=== PATIENT | female | born 1955 | race Caucasian/White ===

== ENCOUNTER 2017-04-10 10:08 | Emergency (ER) | payer BC, OTHER ==
[~2017-04-10] VITALS: Ht 165.1 cm; Wt 56.7 kg
[~2017-04-10 10:08] MED LIST: MGCT300B PO; TRM50T PO
--- OUTSIDE RECORDS SUMMARY | 2017-04-10 10:15 | XMS REPORT | Continuity of Care Document ---
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 DEPRESSED 12/29/2007 NATHANIEL MCGUIRE APRNNDA S 300.00 AN ANXIETY UNSPEC 12/29/2007 NATHANIEL MCGUIRE APRNNDA S 309.0 AD ADJ D/O W DEPRESSED 12/29/2007 NATHANIEL MCGUIRE APRNNDA S 300.00 AN ANXIETY UNSPEC 12/29/2007 MAYNOR GRIMALDO JUDY S 309.0 AD ADJ D/O W DEPRESSED 09/14/2013 NADIYA MCGUIRE APRNA S 386.11 VERTIGO- BENIGN PAROXYSMAL POSITIONAL 09/14/2013 NATHANIEL MCGUIRE APRNNDA S 627.9 MENOPAUSAL AND POSTMENOPAUSAL DISORDER UNSPECIFIED 09/14/2013 NADIYA MCGUIRE APRNA S 780.79 fatigue 09/14/2013 NATHANIEL MCGUIRE APRNNDA S 783.1 WEIGHT GAIN ABNORMAL 09/14/2013 NATHANIEL MCGUIRE APRNNDA S 799.81 libido 09/14/2013 NADIYA MCGUIRE APRNA S V17.49 FAM HX CAD (DISEASE) 09/14/2013 NADIYA MCGUIRE APRNA S V70.0 EXAM - ROUTINE H&P 09/14/2013 NATHANIEL MCGUIRE APRNNDA S 386.11 VERTIGO- BENIGN PAROXYSMAL POSITIONAL 09/14/2013 NATHANIEL MCGUIRE APRNNDA S 627.9 MENOPAUSAL AND POSTMENOPAUSAL DISORDER UNSPECIFIED 09/14/2013 MAYNOR SENIOR SOFTWARE ARCHITECT, JUDY S 780.79 fatigue 09/14/2013 MAYNOR SENIOR SOFTWARE ARCHITECT, JUDY S 783.1 WEIGHT GAIN ABNORMAL 09/14/2013 MAYNOR SENIOR SOFTWARE ARCHITECT, JUDY S 799.81 libido 09/14/2013 MAYNOR SENIOR SOFTWARE ARCHITECT, JUDY S V17.49 FAM HX CAD (DISEASE) 09/14/2013 MAYNOR SENIOR SOFTWARE ARCHITECT, JUDY S V70.0 EXAM - ROUTINE H&P 09/14/2013 MAYNOR SENIOR SOFTWARE ARCHITECTNATHANIEL KayeNDA S 386.11 VERTIGO- BENIGN PAROXYSMAL POSITIONAL 09/14/2013 MAYNOR SENIOR SOFTWARE ARCHITECT, JUDY S 627.9 MENOPAUSAL AND POSTMENOPAUSAL DISORDER UNSPECIFIED 09/14/2013 MAYNOR SENIOR SOFTWARE ARCHITECT, JUDY S 780.79 fatigue 09/14/2013 MAYNOR SENIOR SOFTWARE ARCHITECT, JUDY S 783.1 WEIGHT GAIN ABNORMAL 09/14/2013 MAYNOR SENIOR SOFTWARE ARCHITECT, JUDY S 799.81 libido 09/14/2013 MAYNOR SENIOR SOFTWARE ARCHITECT, JUDY S V17.49 FAM HX CAD (DISEASE) 09/14/2013 MAYNOR SENIOR SOFTWARE ARCHITECT, JUDY S V70.0 EXAM - ROUTINE H&P 09/17/2013 MAYNOR GRIMALDO JUDY S 244.9 HYPOTHYROIDISM 09/17/2013 MAYNOR GRIMALDO, JUDY S 244.9 HYPOTHYROIDISM 09/17/2013 MAYNOR GRIMALDO JUDY S 244.9 HYPOTHYROIDISM 09/18/2013 NATHANIEL MCGUIRE APRNNDA S 272.4 HYPERLIPIDEMIA 09/18/2013 MAYNOR GRIMALDO JUDY S 272.4 HYPERLIPIDEMIA Procedures Code Description [place] [address] UA W/ CULTURE IF INDICATED 09/14/2013 52837 ROUTINE VENIPUNCTURE 09/14/2013 77275 CBC 09/15/2013 [id number] GFR CALC (RESULT ONLY) 09/15/2013 31372 CMP 09/15/2013 50476 TSH 09/15/2013 28870 CULTURE URINE 10/2013 11968 ROUTINE VENIPUNCTURE 09/18/2013 93242 LIPID PANEL 09/18 17512 ROUTINE VENIPUNCTURE 11/16/2013 13929 TSH 11/16/2013 Results Encounters ACCT No. Visit Date/Time Discharge Status Pt. Type Provider Facility Loc./Unit Complaint [id number] 11/16/2013 14:58:00 11/16/2013 23: 59:59 [facility] Outpatient JUDY MCGUIRE APRN [id number] 09/18/2013 09:51:00 09/18/2013 23: 59:59 [facility] Outpatient JUDY MCGUIRE APRN [id number] 09/14/2013 17:40:00 09/14/2013 23: 59:59 [facility] Outpatient JUDY MCGUIRE APRN
--- NOTE | 2017-04-10 10:32 | ED EENT ---
History of Present Illness General Chief Complaint: Dental Problems/Pain Stated Complaint: R SIDE EAR PAIN, SWOLLEN GLANDS Source: patient Exam Limitations: no limitations History of Present Illness Time seen by provider: 10:27 Initial Comments This 62-year-old female presents with right mandibular toothache that has been progressive for the last 24 hours. The patient intends to see the dentist at [facility]. She denies difficulty swallowing, she's had no remarkable soft tissue swelling, the patient's pain radiates into the ear. She has noted some swollen cervical nodes in the region. Next The patient denies headache, stiff neck, photophobia, cough, nausea vomiting, or abdominal pain. Allergies and Home Medications Allergies Coded Allergies: Morphine (Unverified Allergy, Mild, burning sensation, 04/09/10) Naproxen (Unverified Allergy, Mild, 02/20/09) Home Medications Magnesium Citrate 300 Ml Btl, 0 PO UD, #1 Ref 0 USE PER PACKAGE INSTRUCTIONS. Prescribed by: ANDRES BRISENO on 02/20/09 1407 Tramadol Hcl 50 Mg Tab, 50-100 MG PO Q6H PRN, #20 Ref 0 Prescribed by: ANDRES BRISENO on 04/15/09 1709 Review of Systems Constitutional: No chills, No fever Eyes: Denies Blurred Vision Ears: Denies Dizziness, Pain (in the right ear which is radiating from her toothache in the right mandible) Nose: no symptoms reported Mouth: pain (in the right mandibular second molar.) Throat: denies pain, denies swelling Respiratory: No cough Cardiovascular: No chest pain Gastrointestinal: No abdominal pain, No nausea, No vomiting Musculoskeletal: no symptoms reported Skin: no symptoms reported, see HPI, No rash Neurological: No Symptoms Reported Hematologic/Lymphatic: No Symptoms Reported Immunological/Allergic: no symptoms reported Past Wammlqh-Goiyld-Xfkmlj Hx Patient Social History Recent Foreign Travel: No Contact w/Someone Who Travel: No Reviewed Nursing Assessment Reviewed/Agree w Nursing PMH: Yes Physical Exam General Appearance: WD/WN, no apparent distress Eyes: bilateral eye normal inspection Ears: bilateral ear auricle normal Nose: normal inspection Mouth/Throat: normal mouth inspection, other (the area of the patient's pain is located over the second molar of the right mandible. There is no significant soft tissue swelling.) Neck: non-tender Cardiovascular: normal peripheral pulses, regular rate, rhythm Respiratory: chest non-tender, lungs clear Gastrointestinal: normal bowel sounds, non tender Neurologic/Psychiatric: no motor/sensory deficits, alert, normal mood/affect Skin: normal color Departure Impression Impression: Primary Impression: Dental caries Disposition: HOME, SELF-CARE Condition: Unchanged Departure-Patient Inst. Decision time for Depature: 10:31 Referrals: [facility] MD (PCP/Family) Primary Care Physician Patient Instructions: Dental Pain (DC) Add. Discharge Instructions: Pen-Vee K as prescribed. Ibuprofen or Tylenol for pain. Also follow-up with dentistry at [facility]. Return if any problems. All discharge instructions reviewed with patient and/or family. Voiced understanding. OSWALDO VALENZUELA MD Apr 10, 2017 10:32
[2017-04-10 10:36] VITALS: BP 134/72
== END 2017-04-10 10:36 | disposition home or self-care (01) ==
LOC: EDUNIT# 10:08 → ER 10:10
DX: K02.9 Dental caries, unspecified (principal)
CPT/HCPCS: 99282

== ENCOUNTER 2018-04-04 10:16 | Emergency (ER) | payer BC ==
[~2018-04-04] VITALS: Ht 165.1 cm; Wt 50.8 kg
--- OUTSIDE RECORDS SUMMARY | 2018-04-04 11:25 | XMS REPORT ---
Author Author NORA FARMER [facility] Address [address] [place] [address] Care Team Providers Care Patient Transport Officer Name Role Phone NORA FARMER Unavailable PROBLEMS Type Condition ICD9-CM Code BAS48-WN Code Onset Dates Condition Status SNOMED Code Problem Routine general medical examination at health care facility V70.0 Active 926955788 Problem Abnormal weight gain 783.1 Active 342815145 Problem Decreased libido 799.81 Active 0136661 Problem Family history of other cardiovascular diseases V17.49 Active 276620365 Problem Dyslipidemia E78.5 Active 014921767 Problem Unspecified hypothyroidism 244.9 Active 93683768 Problem Unspecified menopausal and postmenopausal disorder 627.9 Active 579417930 Problem Other malaise and fatigue 780.79 Active 722133429 Problem Other and unspecified hyperlipidemia 272.4 Active 33409968 Problem Benign paroxysmal positional vertigo 386.11 Active 795934565 ALLERGIES Substance Reaction Event Type Date Status Sulfacet-R Unknown Drug Allergy Mar, Active Keflex Unknown Drug Allergy Mar, Active Morphine Unknown Drug Allergy Mar, Active ENCOUNTERS Encounter Location Date Diagnosis [facility] [address] [address] Aug, Dyslipidemia E78.5 [facility] [address] [id number] [id number] Aug, Fatigue, unspecified type R53.83 [facility] [address] [facility] [id number] [id number] Aug, [facility] [address] [id number] [id number] Mar, Dental examination Z01.20 and Dental caries on smooth surface penetrating into pulp K02.63 [facility] [id number] [place] [address] May, Dental caries K02.9 [facility] [address] [id number] [place] [address] May, Dental examination Z01.20 [facility] [address] [id number] [place] [address] 14 Sep, 2014 [facility] [address] [id number], [place] [address] 13 Sep, 2014 [facility] [address] [id number] [place] [address] Apr, [facility] [address] [id number] [place] [address] Apr, [facility] [address] [id number] [place] [address] Nov, [facility] [address] [facility] [id number] [place] [address] Nov, [facility] [address] [id number][place] [address] Nov, [facility] [address] [id number] [place] [address] Nov, [facility] [address] [facility] [id number], [place] [address] Nov, [facility] [address] [id number], [place] [address] Nov, [facility] [address] [id number], [place] [address] Nov, [facility] [address] [id number], [place] [address] Nov, [facility] [address] [id number][place] [address] October, [facility] [address] [id number][place] [address] October, [facility] [address] [id number] [place] [address] Sep, [facility] [address] [id number] [place] [address] Sep, [facility] [address] [id number] [place] [address] Sep, [facility] [address] [id number] [place] [address] Sep, [facility] [address] [id number] [place] [address] Sep, [facility] [address] [id number] [place] [address] Sep, [facility] [address] [id number], [place] [address] Sep, [facility] [address] [id number], [place] [address] Sep, [facility] [address] [id number], [place] [address] Sep, [facility] [address] [id number], [place] [address] Sep, [facility] [address] [facility] [id number], [place] [address] Sep, [facility] [address] [id number], [place] [address] Sep, [facility] [address] [id number], [place] [address] Sep, [facility] [address] [id number], [place] [address] Sep, [facility] [address] [facility] [id number][place] [address] Sep, IMMUNIZATIONS No Known Immunizations SOCIAL HISTORY Never Assessed REASON FOR VISIT Dental pain PLAN OF CARE Activity Details Follow Up RADHA/Prophy Reason: VITAL SIGNS Height 65 in 2017-04-13 Heart Rate 78 bpm 2017-04-13 Blood pressure systolic 115 mmHg 2017-04-13 Blood pressure diastolic 69 mmHg 2017-04-13 MEDICATIONS Unknown Medications RESULTS No Results PROCEDURES Procedure Date Ordered Result Body Site LTD ORAL EVALUATION - PROBLEM FOCUS Apr 13, 2017 INTRAORL-PERIAPICAL 1 FILM 35552 Apr 13, 2017 EXTRAC ERUPTED TOOTH/EXPOSED ROOT Apr 13, 2017 INSTRUCTIONS MEDICATIONS ADMINISTERED No Known Medications MEDICAL (GENERAL) HISTORY Type Description Date Medical History thyroid disorder Medical History irritable bowel syndrome Surgical History arthroscopic knee surgery left 1995 Surgical History hysterectomy, abdominal 1992 Surgical History rhinoplasty 1995 Surgical History toe surgery along time ago 1974 Hospitalization History Surgery(s)/Childbirth(s) only
--- OUTSIDE RECORDS SUMMARY | 2018-04-04 11:25 | XMS REPORT | Continuity of Care Document ---
Author Author [facility] Address Unknown Phone Unavailable Allergies Active Description Code Type Severity Reaction Onset Reported/Identified Relationship to Patient Clinical Status Yes naproxen [id number] Drug Allergy Mild N/A 02/20/2009 Yes morphine [id number] Drug Allergy Mild burning sensati 04/09/2010 Yes Keflex Drug Allergy N/A N/A 09/14/2013 Yes morphine Drug Allergy N/A N/A 09/14/2013 Medications There is no data. Problems Date Dx Coded Attending Type Code Diagnosis Diagnosed By 12/29/2007 JUDY MCGUIRE APRN S 300.00 AN ANXIETY UNSPEC 12/29/2007 JUDY MCGUIRE APRN S 309.0 AD ADJ D/O W DEPRESSED 12/29/2007 JUDY MCGUIRE APRN S 300.00 AN ANXIETY UNSPEC 12/29/2007 NADIYA MCGUIRE APRNA S 309.0 AD ADJ D/O W DEPRESSED 12/29/2007 NADIYA MCGUIRE APRNA S 300.00 AN ANXIETY UNSPEC 12/29/2007 JUDY MCGUIRE APRN S 309.0 AD ADJ D/O W DEPRESSED 09/14/2013 JUDY MCGUIRE APRN S 386.11 VERTIGO- BENIGN PAROXYSMAL POSITIONAL 09/14/2013 JUDY MCGUIRE APRN S 627.9 MENOPAUSAL AND POSTMENOPAUSAL DISORDER UNSPECIFIED 09/14/2013 JUDY MCGUIRE APRN S 780.79 fatigue 09/14/2013 JUDY MCGUIRE APRN S 783.1 WEIGHT GAIN ABNORMAL 09/14/2013 JUDY MCGUIRE APRN S 799.81 libido 09/14/2013 JUDY MCGUIRE APRN S V17.49 FAM HX CAD (DISEASE) 09/14/2013 JUDY MCGUIRE APRN S V70.0 EXAM - ROUTINE H&P 09/14/2013 MAYNOR FAMILY PARTNER, JUDY S 386.11 VERTIGO- BENIGN PAROXYSMAL POSITIONAL 09/14/2013 MAYNOR FAMILY PARTNER, JUDY S 627.9 MENOPAUSAL AND POSTMENOPAUSAL DISORDER UNSPECIFIED 09/14/2013 MAYNOR FAMILY PARTNER, JUDY S 780.79 fatigue 09/14/2013 MAYNOR FAMILY PARTNER, JUDY S 783.1 WEIGHT GAIN ABNORMAL 09/14/2013 MAYNOR FAMILY PARTNER, JUDY S 799.81 libido 09/14/2013 MAYNOR LARIOSN, JUDY S V17.49 FAM HX CAD (DISEASE) 09/14/2013 MAYNOR FAMILY PARTNER, JUDY S V70.0 EXAM - ROUTINE H&P 09/14/2013 MAYNOR LARIOSN, JUDY S 386.11 VERTIGO- BENIGN PAROXYSMAL POSITIONAL 09/14/2013 MAYNOR FAMILY PARTNER, JUDY S 627.9 MENOPAUSAL AND POSTMENOPAUSAL DISORDER UNSPECIFIED 09/14/2013 MAYNOR FAMILY PARTNER, JUDY S 780.79 fatigue 09/14/2013 MAYNOR LARIOSN, JUDY S 783.1 WEIGHT GAIN ABNORMAL 09/14/2013 MAYNOR LARIOSN, JUDY S 799.81 libido 09/14/2013 MAYNOR LARIOSN, JUDY S V17.49 FAM HX CAD (DISEASE) 09/14/2013 MAYNOR FAMILY PARTNER, JUDY S V70.0 EXAM - ROUTINE H&P 09/17/2013 MAYNOR FAMILY PARTNER, JUDY S 244.9 HYPOTHYROIDISM 09/17/2013 MAYNOR FAMILY PARTNER, JUDY S 244.9 HYPOTHYROIDISM 09/17/2013 MAYNOR FAMILY PARTNER, JUDY S 244.9 HYPOTHYROIDISM 09/18/2013 MAYNOR FAMILY PARTNER, JUDY S 272.4 HYPERLIPIDEMIA 09/18/2013 MAYNOR FAMILY PARTNER, JUDY S 272.4 HYPERLIPIDEMIA 04/10/2017 OSWALDO VALENZUELA MD Ot K02.9 DENTAL CARIES, UNSPECIFIED 04/10/2017 OSWALDO VALENZUELA MD Ot K08.89 OTHER SPECIFIED DISORDERS OF TEETH AND S Procedures Code Description [place] [address] UA W/ CULTURE IF INDICATED 09/14/2013 65900 ROUTINE VENIPUNCTURE 09/14/2013 89097 CBC 09/15/2013 8632920 GFR CALC (RESULT ONLY) 09/15/2013 12653 CMP 09/15/2013 28971 [facility] 09/15/2013 86282 CULTURE URINE 09/16/2013 48511 ROUTINE VENIPUNCTURE 09/18/2013 30024 LIPID PANEL 09/18/2013 09245 ROUTINE VENIPUNCTURE 11/16/2013 21410 [facility] 11/16/2013 Results Test Result Range LIPID PANEL - 08/19/17 11:06 CHOLESTEROL, TOTAL 229 mg/dL <200 HDL CHOLESTEROL 76 mg/dL >50 TRIGLYCERIDES 105 mg/dL <150 LDL-CHOLESTEROL 132 mg/dL (calc) NRG CHOL/HDLC RATIO 3.0 (calc) <5.0 NON HDL CHOLESTEROL 153 mg/dL (calc) <130 CMP - 08/19/17 11:06 GLUCOSE 87 mg/dL 65-99 UREA NITROGEN (BUN) 18 mg/dL 7-25 CREATININE 0.69 mg/dL 0.50-0.99 eGFR NON-AFR. ROMANIAN 93 mL/min/1.73m2 > OR=60 eGFR 108 mL/min/1.73m2 > OR=60 BUN/CREATININE RATIO NOT APPLICABLE (calc) 6-22 SODIUM 142 mmol/L 135-146 POTASSIUM 4.1 mmol/L 3.5-5.3 CHLORIDE 105 mmol/L 98-110 CARBON DIOXIDE 30 mmol/L 20-31 CALCIUM 10.1 mg/dL 8.6-10.4 PROTEIN, TOTAL 6.8 g/dL 6.1-8.1 ALBUMIN 4.8 g/dL 3.6-5.1 GLOBULIN 2.0 g/dL (calc) 1.9-3.7 ALBUMIN/GLOBULIN RATIO 2.4 (calc) 1.0-2.5 BILIRUBIN, TOTAL 0.5 mg/dL 0.2-1.2 ALKALINE PHOSPHATASE 51 U/L 33-130 AST 21 U/L 10-35 ALT 14 U/L 6-29 CBC - 08/19/17 11:06 WHITE BLOOD CELL COUNT 7.0 Thousand/uL 3.8-10.8 RED BLOOD CELL COUNT 4.30 Million/uL 3.80-5.10 HEMOGLOBIN 13.0 g/dL 11.7-15.5 HEMATOCRIT 38.8 % 35.0-45.0 MCV 90.2 fL 80.0-100.0 MCH 30.2 pg 27.0-33.0 MCHC 33.5 g/dL 32.0-36.0 RDW 11.8 % 11.0-15.0 PLATELET COUNT 283 Thousand/uL 140-400 MPV 10.5 fL 7.5-12.5 ABSOLUTE NEUTROPHILS 3507 cells/uL 4955-8934 ABSOLUTE LYMPHOCYTES 2695 cells/uL 850-3900 ABSOLUTE MONOCYTES 637 cells/uL 200-950 ABSOLUTE EOSINOPHILS 119 cells/uL 15-500 ABSOLUTE BASOPHILS 42 cells/uL 0-200 NEUTROPHILS 50.1 % NRG LYMPHOCYTES 38.5 % NRG MONOCYTES 9.1 % NRG EOSINOPHILS 1.7 % NRG BASOPHILS 0.6 % NRG TSH - 08/19/17 11:06 TSH 2.57 mIU/L 0.40-4.50 Encounters ACCT No. Visit Date/Time Discharge Status Pt. Type Provider Facility Loc./Unit Complaint [id number] 11/16/2013 14:58:00 11/16/2013 23:59:59 CLS Outpatient JUDY MCGUIRE APRN [id number] 09/18/2013 09:51:00 09/18/2013 23:59:59 CLS Outpatient JUDY MCGUIRE APRN [id number] 09/14/2013 17:40:00 09/14/2013 23:59:59 CLS Outpatient JUDY MCGUIRE APRN [id number] 08/19/2017 10:00:00 08/19/2017 23:59:59 CLS Outpatient BHARTI CASTRO [facility] [id number] 08/19/2017 10:00:00 Document Registration [id number] 04/10/2017 10:10:00 04/10/2017 10:36:00 DIS Emergency NICOLAS FLOYD, OSWALDO Cedillo [facility] ER R SIDE EAR PAIN, SWOLLEN GLANDS
--- OUTSIDE RECORDS SUMMARY | 2018-04-04 11:25 | XMS REPORT ---
Author Author AT GENAO Organization [facility] Address [address] [place] [address] Care Team Providers Care Tailor Garment Fitter Name Role Phone NARDAJINAASHISHT Unavailable PROBLEMS Type Condition ICD9-CM Code TUL60-RR Code Onset Dates Condition Status SNOMED Code Problem Routine general medical examination at health care facility V70.0 Active 734019949 Problem Abnormal weight gain 783.1 Active 525618587 Problem Decreased libido 799.81 Active 0077333 Problem Family history of other cardiovascular diseases V17.49 Active 938210017 Problem Dyslipidemia E78.5 Active 019506704 Problem Unspecified hypothyroidism 244.9 Active 01294755 Problem Unspecified menopausal and postmenopausal disorder 627.9 Active 004771991 Problem Other malaise and fatigue 780.79 Active 366541087 Problem Other and unspecified hyperlipidemia 272.4 Active 67948733 Problem Benign paroxysmal positional vertigo 386.11 Active 951081699 ALLERGIES No Information ENCOUNTERS Encounter Location Date Diagnosis [facility] [id number] [place] [address] Aug, Dyslipidemia E78.5 [facility] [id number] [id number] Aug, Fatigue, unspecified type R53.83 [facility] [id number] [id number] Aug, [facility] [address] [id number] [id number] Mar, Dental examination Z01.20 and Dental caries on smooth surface penetrating into pulp K02.63 [facility] [address] [place] [address] May, Dental caries K02.9 [facility] [address] [place] [address] 05 May, 2016 Dental examination Z01.20 [facility] [place] [facility] [address] [id number] [place] [address] 14 Sep, 2014 [facility] [place] [facility] [address] [id number] [place] [address] 13 Sep, 2014 [facility] [address] [id number] [place] [address] 10 Apr, 2014 [facility] [place] [facility] [address] [id number] [place] [address] Apr, [facility] [place] [facility] [address] [id number] [place] [address] Nov, [facility] [place] [facility] [address] [id number] [place] [address] 17 Nov, 2013 [facility] [place] [facility] [address] [id number] [place] [address] Nov, [facility] [place] [facility] [address] [id number] [place] [address] Nov, [facility] [place] [facility] [address] [id number] [place] [address] Nov, [facility] [place] [facility] [address] [facility] [id number] [place] [address] Nov, [facility] [place] [facility] [address] [id number] [place] [address] Nov, [facility] [place] [facility] [address] [id number] [place] [address] Nov, [facility] [place] [facility] [address] [id number] [place] [address] October, [facility] [place] [facility] [address] [id number] [place] [address] October, [facility] [place] [facility] [address] [id number] [place] [address] Sep, [facility] [address] [facility] [id number], [place] [address] Sep, [facility] [address] [facility] [id number], [place] [address] Sep, [facility] [address] [facility] [id number], [place] [address] Sep, [facility] [address] [facility] [id number], [place] [address] Sep, [facility] [address] [facility] [id number], [place] [address] Sep, [facility] [address] [facility] [id number], [place] [address] Sep, [facility] [address]65[address], [place] [address] Sep, [facility] [address]00565100[place], [place] [address] Sep, [facility] [address] [id number], [place] [address] Sep, [facility] [address] [id number], [place] [address] Sep, [facility] [address] [id number], [place] [address] Sep, [facility] [address] [id number] [address] Sep, [facility] [address] [id number], [place] [address] Sep, [facility] [address] [id number], [place] [address] Sep, IMMUNIZATIONS No Known Immunizations SOCIAL HISTORY Never Assessed REASON FOR VISIT PLAN OF CARE VITAL SIGNS MEDICATIONS Medication Instructions Dosage Frequency Start Date End Date Duration Status Atorvastatin Calcium 40 mg Orally Once a day 1 tablet 24h 09 Mar, 2018 30 day(s) Active RESULTS No Results PROCEDURES No Known procedures INSTRUCTIONS MEDICATIONS ADMINISTERED No Known Medications MEDICAL (GENERAL) HISTORY Type Description Date Medical History thyroid disorder Medical History irritable bowel syndrome Surgical History arthroscopic knee surgery left 1995 Surgical History hysterectomy, abdominal 1992 Surgical History rhinoplasty 1995 Surgical History toe surgery along time ago 1974 Hospitalization History Surgery(s)/Childbirth(s) only
--- OUTSIDE RECORDS SUMMARY | 2018-04-04 11:25 | XMS REPORT ---
Author Author TA GENAO Organization [facility] Address [address] [place] [address] Care Team Providers Care Alignment Mechanic Name Role Phone NARDAIVANIATA Fermin Unavailable PROBLEMS Type Condition ICD9-CM Code SAH48-QS Code Onset Dates Condition Status SNOMED Code Problem Routine general medical examination at health care facility V70.0 Active 880631044 Problem Abnormal weight gain 783.1 Active 017784216 Problem Decreased libido 799.81 Active 0822858 Problem Family history of other cardiovascular diseases V17.49 Active 016617191 Problem Dyslipidemia E78.5 Active 174459264 Problem Unspecified hypothyroidism 244.9 Active 49638633 Problem Unspecified menopausal and postmenopausal disorder 627.9 Active 475876511 Problem Other malaise and fatigue 780.79 Active 150098380 Problem Other and unspecified hyperlipidemia 272.4 Active 57003614 Problem Benign paroxysmal positional vertigo 386.11 Active 185936716 ALLERGIES Substance Reaction Event Type Date Status Sulfacet-R hives Drug Allergy Aug, Active Keflex hives Drug Allergy Aug, Active ENCOUNTERS Encounter Location Date Diagnosis [facility] [address] [facility] [id number], [place] [address] Aug, Dyslipidemia E78.5 [facility] [address] [facility] [id number] [id number] Aug, Fatigue, unspecified type R53.83 [facility] [address] [facility] [id number] [id number] Aug, [id number] [id number] [id number] Mar, Dental examination Z01.20 and Dental caries on smooth surface penetrating into pulp K02.63 [facility] [address] [place] [address] May, Dental caries K02.9 [facility] [address] [id number] [place] [address] May, Dental examination Z01.20 [facility] [address] [id number] [place] [address] 14 Sep, 2014 [facility] [address] [id number], [place] [address] Sep, [facility] [address] [id number] [place] [address] Apr, [facility] [address] [id number] [place] [address] Apr, [facility] [address] [id number] [place] [address] Nov, [facility] [address] [facility] [id number] [place] [address] Nov, [facility] [address] [id number], [place] [address] Nov, [facility] [address] [id number] [place] [address] Nov, [facility] [address] [facility] [id number], [place] [address] Nov, [facility] [address] [id number], [place] [address] Nov, [facility] [address] [id number], [place] [address] Nov, [facility] [address] [id number], [place] [address] Nov, [facility] [place] [facility] [address] [facility] [id number], [place] [address] October, [facility] [address] [id number], [place] [address] October, [facility] [address] [id number] [place] [address] Sep, [facility] [address] [id number] [place] [address] Sep, [facility] [address] [id number] [place] [address] Sep, [facility] [address] [id number] [place] [address] Sep, [facility] [address] [id number] [place] [address] Sep, [facility] [address] [id number] [place] [address] Sep, [facility] [address] [facility] [id number] [place] [address] Sep, [facility] [address] [facility] [id number], [place] [address] Sep, [facility] [address] [facility] [id number] [place] [address] Sep, [facility] [address] [facility] [id number] [place] [address] Sep, [facility] [address] [facility] [id number] [place] [address] Sep, [facility] [address] [facility] [id number], [place] [address] Sep, [facility] [address] [facility] [id number][place] [address] Sep, [facility] [address] [facility] [id number], [place] [address] Sep, [facility] [address] [facility] [id number], [place] [address] Sep, IMMUNIZATIONS No Known Immunizations SOCIAL HISTORY Never Assessed REASON FOR VISIT PMH obtained. Derek LINTON PLAN OF CARE VITAL SIGNS MEDICATIONS Medication Instructions Dosage Frequency Start Date End Date Duration Status Progesterone 0.5ml at PM 15 Sep, 2013 Not-Taking RESULTS No Results PROCEDURES No Known procedures INSTRUCTIONS MEDICATIONS ADMINISTERED No Known Medications MEDICAL (GENERAL) HISTORY Type Description Date Medical History thyroid disorder Medical History irritable bowel syndrome Surgical History arthroscopic knee surgery left 1995 Surgical History hysterectomy, abdominal 1992 Surgical History rhinoplasty 1995 Surgical History toe surgery along time ago 1973 Hospitalization History Surgery(s)/Childbirth(s) only
--- OUTSIDE RECORDS SUMMARY | 2018-04-04 11:25 | XMS REPORT ---
Author Author TA GENAO Organization [facility] Address [address] [place] [address] Care Team Providers Care Straw Hat Brim Cutter Operator Name Role Phone NARDAIVANIATA Fermin Unavailable PROBLEMS Type Condition ICD9-CM Code OEV14-BJ Code Onset Dates Condition Status SNOMED Code Problem Routine general medical examination at health care facility V70.0 Active 893723753 Problem Abnormal weight gain 783.1 Active 036452745 Problem Decreased libido 799.81 Active 0876625 Problem Family history of other cardiovascular diseases V17.49 Active 307264827 Problem Dyslipidemia E78.5 Active 624362948 Problem Unspecified hypothyroidism 244.9 Active 98085237 Problem Unspecified menopausal and postmenopausal disorder 627.9 Active 450420304 Problem Other malaise and fatigue 780.79 Active 493671185 Problem Other and unspecified hyperlipidemia 272.4 Active 49241268 Problem Benign paroxysmal positional vertigo 386.11 Active 905564446 ALLERGIES Substance Reaction Event Type Date Status Sulfacet-R hives Drug Allergy Aug, Active Keflex hives Drug Allergy Aug, Active ENCOUNTERS Encounter Location Date Diagnosis [facility] [address] [facility] [id number], [place] [address] Aug, Dyslipidemia E78.5 [facility] [address] [facility] [id number] [place] [id number] Aug, Fatigue, unspecified type R53.83 [facility] [address] [facility] [id number] [place] [id number] Aug, [address] [id number] [id number] Mar, Dental examination Z01.20 and Dental caries on smooth surface penetrating into pulp K02.63 [facility] [address] [place] [address] May, Dental caries K02.9 [facility] [address] [id number] [place] [address] May, Dental examination Z01.20 [facility] [address] [id number] [place] [address] 14 Sep, 2014 [facility] [address] [id number], [place] [address] Sep, [facility] [address] [id number] [place] [address] Apr, [facility] [address] [id number] [place] [address] Apr, [facility] [address] [id number] [place] [address] Nov, [facility] [address] [facility] [id number] [place] [address] Nov, [facility] [address] [id number], [place] [address] Nov, [facility] [address] [id number] [place] [address] Nov, [facility] [address] [facility] [id number], [place] [address] Nov, [facility] [address] [id number], [place] [address] Nov, [facility] [address] [id number], [place] [address] Nov, [facility] [address] [id number], [place] [address] Nov, [facility] [place] [facility] [address] [facility] [id number], [place] [address] October, [facility] [address] [id number], [place] [address] October, [facility] [address] [id number] [place] [address] Sep, [facility] [address] [id number] [place] [address] Sep, [facility] [address] [id number] [place] [address] Sep, [facility] [address] [id number] [place] [address] Sep, [facility] [address] [id number] [place] [address] Sep, [facility] [address] [id number] [place] [address] Sep, [facility] [address] [facility] [id number] [place] [address] Sep, [facility] [address] [id number] [place] [address] Sep, [facility] [address] [id number] [place] [address] Sep, [facility] [address] [facility] [id number] [place] [address] Sep, [facility] [address] [facility] [id number] [place] [address] Sep, [facility] [address] [id number], [place] [address] Sep, [facility] [address] [facility] [id number], [place] [address] Sep, [facility] [address] [id number] [place] [address] Sep, [facility] [address] [facility] [id number], [place] [address] Sep, IMMUNIZATIONS No Known Immunizations SOCIAL HISTORY Never Assessed REASON FOR VISIT here to establish care, has thyroid issues. Has not seen anyone is about 4 years. karen Dasilva PLAN OF CARE Activity Details Follow Up prn Reason: VITAL SIGNS Height 65 in 2017-08-19 Weight 113.4 lbs 2017-08-19 Temperature 98.2 degrees Fahrenheit 2017-08-19 Heart Rate 62 bpm 2017-08-19 Respiratory Rate 16 2017-08-19 BMI 18.87 kg/m2 2017-08-19 Blood pressure systolic 116 mmHg 2017-08-19 Blood pressure diastolic 72 mmHg 2017-08-19 MEDICATIONS Unknown Medications RESULTS No Results PROCEDURES Procedure Date Ordered Result Body Site ASSAY THYROID STIM HORMONE August 19, 2017 COMPREHEN METABOLIC PANEL August 19, 2017 LIPID PANEL August 19, 2017 COMPLETE CBC W/AUTO DIFF WBC August 19, 2017 INSTRUCTIONS MEDICATIONS ADMINISTERED No Known Medications MEDICAL (GENERAL) HISTORY Type Description Date Medical History thyroid disorder Medical History irritable bowel syndrome Surgical History arthroscopic knee surgery left 1995 Surgical History hysterectomy, abdominal 1992 Surgical History rhinoplasty 1995 Surgical History toe surgery along time ago 1974 Hospitalization History Surgery(s)/Childbirth(s) only
[2018-04-04] MEDS ORDERED: METH-313 PO (11:30)
[2018-04-04] MEDS ORDERED: ORPHENADRINE 60 MG/2 ML (NORFLEX) AMP IM ONE (11:30)
[2018-04-04] MEDS ORDERED: KETOROLAC 60 MG/2 ML VIAL IM ONE (11:30)
--- NOTE | 2018-04-04 11:30 | ED Back Pain ---
General Stated Complaint: BACK PAIN;NAUSEA Source of Information: Patient Exam Limitations: No Limitations History of Present Illness Date Seen by Provider: Apr 04, 2018 Time Seen by Provider: 11:27 Initial Comments To ER per private vehicle with reports of right low back pain described as an "knot" that began as an "twinge" 1 week ago and yesterday while at [facility] became suddenly worse. It radiates up her back and partially down the right leg. No fevers or chills, no loss of bowel or bladder control and no loss of sensation of her genitals. No falls or trauma. She took one of her 's hydrocodone and Valium last night without much relief. Location: Lumbar Spine, Paraspinous Muscles Timing/Duration: 1 Week Severity: Moderate Modifying Factors: Worse With Movement Associated Symptoms: lower back pain Allergies and Home Medications Allergies Coded Allergies: Morphine (Unverified Allergy, Mild, burning sensation, 04/09/10) Naproxen (Unverified Allergy, Mild, 02/20/09) Home Medications Magnesium Citrate 300 Ml Btl, 0 PO UD USE PER PACKAGE INSTRUCTIONS. Prescribed by: ANDRES BRISENO on 02/20/09 1407 Tramadol Hcl 50 Mg Tab, 50-100 MG PO Q6H PRN Prescribed by: ANDRES BRISENO on 04/15/09 1709 Patient Home Medication List Home Medication List Reviewed: Yes Review of Systems Constitutional: see HPI EENTM: see HPI Respiratory: no symptoms reported Cardiovascular: no symptoms reported Gastrointestinal: No abdominal pain, No constipation Genitourinary: see HPI; No dysuria, No frequency, No hematuria, No hesitancy, No incontinence Musculoskeletal: see HPI, back pain Skin: no symptoms reported Psychiatric/Neurological: No Symptoms Reported Past Rtegqcj-Dkwvku-Aocrzb Hx Patient Social History 2nd Hand Smoke Exposure: No Recent Hopitalizations: No Seasonal Allergies Seasonal Allergies: No Past Medical History Surgeries: Yes Physical Exam Vital Signs Capillary Refill : Height, Weight, BMI Height: 5'5" Weight: 125lbs. oz. 56.553754tq; BMI Method:Stated General Appearance: No Apparent Distress, WD/WN HEENT: PERRL/EOMI, TMs Normal Neck: Full Range of Motion, Normal Inspection Respiratory: No Accessory Muscle Use, No Respiratory Distress Gastrointestinal: Non Tender, Soft Back: Normal Inspection, Other (tenderness over SI joint on right) Extremity: Normal Capillary Refill, Normal Inspection Neurologic/Psychiatric: Alert, Oriented x3 Skin: Normal Color, Warm/Dry Progress/Results/Core Measures Results/Orders My Orders Orders - ALVARO COELHO APRN Cbc With Automated Diff (04/04/18 10:42) Comprehensive Metabolic Panel (04/04/18 10:42) Ua Culture If Indicated (04/04/18 10:42) Ketorolac Injection (Toradol Injection) (04/04/18 11:30) Orphenadrine Injection (Norflex Injectio (04/04/18 11:30) Departure Impression Primary Impression: Muscle spasm Additional Impression: Acute low back pain Disposition: HOME, SELF-CARE Condition: Stable Departure-Patient Inst. Decision time for Depature: 11:29 Referrals: JORGE LUIS DUPONT MD (PCP/Family) Primary Care Physician Patient Instructions: Low Back Pain (DC) Add. Discharge Instructions: 1. Return to ER for any concerns 2. Follow-up with your doctor next week 3. Warm compresses to her back. Scripts Methocarbamol (Robaxin-750) 750 Mg Tablet 750 MG PO Q4H PRN for PAIN-MODERATE TO SEVERE, #20 TAB Prov: ALVARO COELHO APRN 04/04/18 Work/School Note: Work Release Form Date Seen in the Emergency Department: Apr 04, 2018 Return to Work: Apr 06, 2018 ALVARO COELHO APRN Apr 04, 2018 11:30
[2018-04-04 11:34] LABS: BILIRUBIN,URINE NEGATIVE (NEGATIVE); CLARITY,URINE CLEAR; COLOR,URINE YELLOW; GLUCOSE, URINE (UA) NEGATIVE (NEGATIVE); KETONES,URINE NEGATIVE (NEGATIVE); LEUKOCYTE ESTERASE ,URINE 1+ (NEGATIVE); NITRITE,URINE NEGATIVE (NEGATIVE); PH,URINE 5 (5-9); PROTEIN,URINE NEGATIVE (NEGATIVE); UROBILINOGEN,URINE NORMAL (NORMAL)
[2018-04-04 11:43] LABS: BACTERIA,URINE NEGATIVE /HPF; RBC,URINE 0-2 /HPF; WBC,URINE RARE /HPF
[2018-04-04 12:15] VITALS: BP 101/60
== END 2018-04-04 12:15 | disposition home or self-care (01) ==
LOC: EDUNIT# 10:16 → ER 10:17
DX: M54.5 Low back pain (principal); M62.830 Muscle spasm of back; Z88.5 Allergy status to narcotic agent; Z88.8 Allergy status to other drugs, medicaments and biological substances
CPT/HCPCS: 81000; 99284

== ENCOUNTER 2018-09-12 21:58 | Emergency (ER) | payer BC ==
[~2018-09-12] VITALS: Ht 165.1 cm; Wt 49.9 kg
[~2018-09-12 21:58] MED LIST changes: +METH-313 PO
--- OUTSIDE RECORDS SUMMARY | 2018-09-12 22:03 | XMS REPORT | Continuity of Care Document ---
Author Author [facility] Address Unknown Phone Unavailable Allergies Active Description Code Type Severity Reaction Onset Reported/Identified Relationship to Patient Clinical Status Yes naproxen [id number] Drug Allergy Mild N/A 02/20/2009 Yes morphine [id number] Drug Allergy Mild burning sensati 04/09/2010 Yes [...] APRNA S 300.00 AN ANXIETY UNSPEC 12/29/2007 NADIYA MCGUIRE APRNA S 309.0 AD ADJ D/O W DEPRESSED 09/14/2013 JUDY MCGUIRE APRN S 386.11 VERTIGO- BENIGN PAROXYSMAL POSITIONAL 09/14/2013 JUDY MCGUIRE APRN S 627.9 MENOPAUSAL AND POSTMENOPAUSAL DISORDER UNSPECIFIED 09/14/2013 NADIYA MCGUIRE APRNA S 780.79 fatigue 09/14/2013 JUDY MCGUIRE APRN S 783.1 WEIGHT GAIN ABNORMAL 09/14/2013 JUDY MCGUIRE APRN S 799.81 libido 09/14/2013 JUDY MCGUIRE APRN S V17.49 FAM HX CAD (DISEASE) 09/14/2013 JUDY MCGUIRE APRN S V70.0 EXAM - ROUTINE H&P 09/14/2013 MAYNOR HEEL STIFFENER, JUDY S 386.11 VERTIGO- BENIGN PAROXYSMAL POSITIONAL 09/14/2013 MAYNOR HEEL STIFFENER, JUDY S 627.9 MENOPAUSAL AND POSTMENOPAUSAL DISORDER UNSPECIFIED 09/14/2013 MAYNOR HEEL STIFFENER, JUDY S 780.79 fatigue 09/14/2013 MAYNOR HEEL STIFFENER, JUDY S 783.1 WEIGHT GAIN ABNORMAL 09/14/2013 MAYNOR HEEL STIFFENER, JUDY S 799.81 libido 09/14/2013 MAYNOR HEEL STIFFENER, JUDY S V17.49 FAM HX CAD (DISEASE) 09/14/2013 MAYNOR HEEL STIFFENER, JUDY S V70.0 EXAM - ROUTINE H&P 09/14/2013 MAYNOR HEEL STIFFENER, JUDY S 386.11 VERTIGO- BENIGN PAROXYSMAL POSITIONAL 09/14/2013 MAYNOR HEEL STIFFENER, JUDY S 627.9 MENOPAUSAL AND POSTMENOPAUSAL DISORDER UNSPECIFIED 09/14/2013 MAYNOR HEEL STIFFENER, JUDY S 780.79 fatigue 09/14/2013 MAYNOR LARIOSN, JUDY S 783.1 WEIGHT GAIN ABNORMAL 09/14/2013 MAYNOR HEEL STIFFENER, JUDY S 799.81 libido 09/14/2013 MAYNOR HEEL STIFFENER, JUDY S V17.49 FAM HX CAD (DISEASE) 09/14/2013 MAYNOR HEEL STIFFENER, JUDY S V70.0 EXAM - ROUTINE H&P 09/17/2013 MAYNOR HEEL STIFFENER, JUDY S 244.9 HYPOTHYROIDISM 09/17/2013 MAYNOR HEEL STIFFENER, JUDY S 244.9 HYPOTHYROIDISM 09/17/2013 MAYNOR HEEL STIFFENER, JUDY S 244.9 HYPOTHYROIDISM 09/18/2013 MAYNOR HEEL STIFFENER, JUDY S 272.4 HYPERLIPIDEMIA 09/18/2013 MAYNOR HEEL STIFFENER, JUDY S 272.4 HYPERLIPIDEMIA 04/10/2017 NICOLAS FLOYD, OSWALDO Cedillo Ot K02.9 DENTAL CARIES, UNSPECIFIED 04/10/2017 OSWALDO VALENZUELA MD Ot K08.89 OTHER SPECIFIED DISORDERS OF TEETH AND S 04/04/2018 ALVARO COELHO HEEL STIFFENER Ot M54.5 LOW BACK PAIN 04/04/2018 ALVARO COELHO HEEL STIFFENER Ot M62.830 MUSCLE SPASM OF BACK 04/04/2018 ALVARO COELHO HEEL STIFFENER Ot Z88.5 ALLERGY STATUS TO NARCOTIC AGENT STATUS 04/04/2018 ALVARO COELHO HEEL STIFFENER Ot Z88.8 ALLERGY STATUS TO OTH DRUG/MEDS/BIOL SUB 04/06/2018 ALVARO COELHO HEEL STIFFENER Ot M54.5 LOW BACK PAIN 04/06/2018 ALVARO COELHO APRN Ot M62.830 MUSCLE SPASM OF BACK 04/06/2018 ALVARO COELHO HEEL STIFFENER Ot Z88.5 ALLERGY STATUS TO NARCOTIC AGENT STATUS 04/06/2018 ALVARO COELHO HEEL STIFFENER Ot Z88.8 ALLERGY STATUS TO OTH DRUG/MEDS/BIOL SUB 04/10/2018 ALVARO COELHO APRN Ot M54.5 LOW BACK PAIN 04/10/2018 ALVARO COELHO APRN Ot M62.830 MUSCLE SPASM OF BACK 04/10/2018 ALVARO COELHO APRN Ot Z88.5 ALLERGY STATUS TO NARCOTIC AGENT STATUS 04/10/2018 ALVARO COELHO HEEL STIFFENER Ot Z88.8 ALLERGY STATUS TO OTH DRUG/MEDS/BIOL SUB Procedures Code [place] [address] UA W/ CULTURE IF INDICATED 09/14/2013 68449 ROUTINE VENIPUNCTURE 09/14/2013 72177 CBC 09/15/2013 [id number] GFR CALC (RESULT ONLY) 09/15/2013 15708 CMP 09/15/2013 96718 TSH 09/15/2013 23269 CULTURE URINE 09/16/2013 09914 ROUTINE VENIPUNCTURE 09/18/2013 64980 LIPID PANEL 09/18/2013 49713 ROUTINE VENIPUNCTURE 11/16/2013 39786 TSH 11/16/2013 Results Test Result Range LIPID PANEL - 08/19/17 11:06 CHOLESTEROL, TOTAL 229 mg/dL <200 HDL CHOLESTEROL 76 mg/dL >50 TRIGLYCERIDES 105 mg/dL <150 LDL-CHOLESTEROL 132 mg/dL (calc) NRG CHOL/HDLC RATIO 3.0 (calc) <5.0 NON HDL CHOLESTEROL 153 mg/dL (calc) <130 CMP - 08/19/17 11:06 GLUCOSE 87 mg/dL 65-99 UREA NITROGEN (BUN) 18 mg/dL 7-25 CREATININE 0.69 mg/dL 0.50-0.99 eGFR NON-AFR. IRISH 93 mL/min/1.73m2 > OR=60 eGFR 108 mL/min/1.73m2 [...] 10.5 fL 7.5-12.5 ABSOLUTE NEUTROPHILS 3507 cells/uL 8289-8038 ABSOLUTE LYMPHOCYTES 2695 cells/uL 850-3900 ABSOLUTE MONOCYTES 637 cells/uL 200-950 ABSOLUTE EOSINOPHILS 119 cells/uL 15-500 ABSOLUTE BASOPHILS 42 cells/uL 0-200 NEUTROPHILS 50.1 % NRG LYMPHOCYTES 38.5 % NRG MONOCYTES 9.1 % NRG EOSINOPHILS 1.7 % NRG BASOPHILS 0.6 % NRG TSH - 08/19/17 11:06 TSH 2.57 mIU/L 0.40-4.50 Complete urinalysis with reflex to culture - 04/04/18 11:18 Urine color determination YELLOW NRG Urine clarity determination CLEAR NRG Urine pH measurement by test strip 5 5-9 Specific gravity of urine by test strip 1.010 1.016- 1.022 Urine protein assay by test strip, semi-quantitative NEGATIVE NEGATIVE Urine glucose detection by automated test strip NEGATIVE NEGATIVE Erythrocytes detection in urine sediment by light microscopy 1+ NEGATIVE Urine ketones detection by automated test strip NEGATIVE NEGATIVE Urine nitrite detection by test strip NEGATIVE NEGATIVE Urine total bilirubin detection by test strip NEGATIVE NEGATIVE Urine urobilinogen measurement by automated test strip (mass/volume) NORMAL NORMAL Urine leukocyte esterase detection by dipstick 1+ NEGATIVE Automated urine sediment erythrocyte count by microscopy (number/high power field) [HPF] NRG Automated urine sediment leukocyte count by microscopy (number/high power field ) RARE NRG Bacteria detection in urine sediment by light microscopy NEGATIVE NRG Squamous epithelial cells detection in urine sediment by light microscopy 2-5 NRG Crystals detection in urine sediment by light microscopy NONE NRG Casts detection in urine sediment by light microscopy NONE NRG Mucus detection in urine sediment by light microscopy NEGATIVE NRG Complete urinalysis with reflex to culture NO NRG Encounters ACCT No. Visit Date/Time Discharge Status Pt. Type Provider Facility Loc./Unit Complaint [id number] 11/16/2013 14:58:00 11/16/2013 23:59:59 CLS Outpatient JUDY MCGUIRE APRN [id number] 09/18/2013 09:51:00 09/18/2013 23:59:59 CLS Outpatient JUDY MCGUIRE APRN [id number] 09/14/2013 17:40:00 09/14/2013 23:59:59 CLS Outpatient JUDY MCGUIRE APRN [id number] 08/19/2017 10:00:00 08/19/2017 23:59:59 CLS Outpatient BHARTI CASTRO [facility] [id number] 08/19/2017 10:00:00 Document Registration [id number] 04/04/2018 10:17:00 04/04/2018 12:15:00 DIS Emergency ALVARO COELHO APRN [facility] BACK PAIN;NAUSEA [id number] 04/10/2017 10:10:00 04/10/2017 10:36:00 DIS Emergency OSWALDO VALENZUELA MD [facility] ER R SIDE EAR PAIN, SWOLLEN GLANDS [id number] 09/12/2018 21:59:00 ACT Emergency AZIZA SERRANO DO [facility] ER STOMACH PAIN/BLOATING/NAUSEA
[2018-09-13 00:41] LABS: BASOPHILS % (AUTO) 0 % (0-10); EOSINOPHILS # (AUTO) 0.1 10^3/uL (0.0-0.3); EOSINOPHILS % (AUTO) 1 % (0-10); HEMATOCRIT 41 % (35-52); HEMOGLOBIN 13.5 G/DL (11.5-16.0); LYMPHOCYTES # (AUTO) 2.7 X 10^3 (1.0-4.0); LYMPHOCYTES % (AUTO) 31 % (12-44); MEAN CORPUSCULAR HEMOGLOBIN 29 PG (25-34); MEAN CORPUSCULAR HGB CONC 33 G/DL (32-36); MEAN CORPUSCULAR VOLUME 88 FL (80-99); MEAN PLATELET VOLUME 9.9 FL (7.4-10.4); MONOCYTES % (AUTO) 12 % (0-12); NEUTROPHILS # (AUTO) 4.8 X 10^3 (1.8-7.8); NEUTROPHILS % (AUTO) 56 % (42-75); PLATELET COUNT 278 10^3/uL (130-400); RED CELL DISTRIBUTION WIDTH 12.6 % (10.0-14.5); WHITE BLOOD COUNT 8.6 10^3/uL (4.3-11.0)
[2018-09-13 00:42] LABS: BILIRUBIN,URINE NEGATIVE (NEGATIVE); CLARITY,URINE CLEAR; COLOR,URINE YELLOW; GLUCOSE, URINE (UA) NEGATIVE (NEGATIVE); KETONES,URINE NEGATIVE (NEGATIVE); LEUKOCYTE ESTERASE ,URINE 2+ (NEGATIVE); NITRITE,URINE NEGATIVE (NEGATIVE); PH,URINE 5 (5-9); PROTEIN,URINE NEGATIVE (NEGATIVE); UROBILINOGEN,URINE NORMAL (NORMAL)
[2018-09-13] MEDS ORDERED: ONDANSETRON 4 MG/2 ML (SDV) Z0FRAN IVP ONE (00:45)
[2018-09-13] MEDS ORDERED: HYOSCYAMINE 0.125 MG (LEVSIN) TAB SL ONE (00:45)
[2018-09-13 00:46] LABS: INR 1.1 (0.8-1.4); PROTHROMBIN TIME PATIENT 14.3 SEC (12.2-14.7)
[2018-09-13 00:50] LABS: BACTERIA,URINE FEW /HPF; SQUAMOUS EPITHELIAL CELL,UR 0-2 /HPF; WBC,URINE 0-2 /HPF
[2018-09-13 00:53] LABS: ALANINE AMINOTRANSFERASE 13 U/L (0-55); ALBUMIN 4.5 GM/DL (3.2-4.5); ALKALINE PHOSPHATASE 60 U/L (40-136); AMYLASE 74 U/L (25-125); BILIRUBIN,TOTAL 0.3 MG/DL (0.1-1.0); BUN/CREATININE RATIO 26; CALCIUM 9.9 MG/DL (8.5-10.1); CARBON DIOXIDE 28 MMOL/L (21-32); CHLORIDE 102 MMOL/L (98-107); CREATININE SERUM 0.78 MG/DL (0.60-1.30); GFR ESTIMATED > 60; GLUCOSE 65 MG/DL (70-105); LIPASE 36 U/L (8-78); MAGNESIUM 2.8 MG/DL (1.8-2.4); POTASSIUM 3.8 MMOL/L (3.6-5.0); SODIUM 141 MMOL/L (135-145); TOTAL PROTEIN 7.3 GM/DL (6.4-8.2)
[2018-09-13 01:12] LABS: TSH (THYROID ANALYZER) 9.49 UIU/ML (0.35-4.94)
[2018-09-13 02:00] LABS: FREE T4 (FREE THYROXINE) 1.01 NG/DL (0.70-1.48)
[2018-09-13] MEDS ORDERED: HOLD METFORMIN - RECEIVED CONTRAST 20 ML VIAL IV SCH (02:15)
[2018-09-13] MEDS ORDERED: IOHEXOL 350 MG/ML 150 ML (OMNIPAQUE 350) VIAL IV ONE (02:15)
--- NOTE | 2018-09-13 02:47 | ED General ---
General Chief Complaint: Abdominal/GI Problems Stated Complaint: STOMACH PAIN/BLOATING/NAUSEA Nursing Triage Note: complaint of bloating. pt states abdominal pain. nausea. states not getting better. long hx of this Nursing Sepsis Screen: No Definite Risk Allergies and Home Medications Allergies Coded Allergies: Sulfa (Sulfonamide Antibiotics) (Verified Allergy, Intermediate, RASH, 09/13) morphine (Unverified Allergy, Mild, burning sensation, 04/09/10) naproxen (Unverified Allergy, Mild, 02/20/09) Home Medications Magnesium Citrate 300 Ml Btl, 0 PO UD USE PER PACKAGE INSTRUCTIONS. Prescribed by: ANDRES BRISENO on 02/20/09 1407 Methocarbamol 750 Mg Tablet, 750 MG PO Q4H PRN for PAIN-MODERATE TO SEVERE Prescribed by: ALAVRO COELHO on 04/04/18 1130 Tramadol Hcl 50 Mg Tab, 50-100 MG PO Q6H PRN Prescribed by: ANDRES BRISENO on 04/15/09 1709 Past Tmpsjwc-Rtpymt-Uthxhu Hx Patient Social History Alcohol Use: Rarely Uses Recreational Drug Use: No Smoking Status: Never a Smoker 2nd Hand Smoke Exposure: No Recent Foreign Travel: No Contact w/Someone Who Travel: No Recent Infectious Disease Expo: No Recent Hopitalizations: No Immunizations Up To Date Tetanus Booster (TDap): Unknown PED Vaccines UTD: Yes Seasonal Allergies Seasonal Allergies: No Past Medical History Surgeries: Yes Appendectomy, Hysterectomy, Orthopedic Respiratory: No Cardiac: No Neurological: No Genitourinary: No Gastrointestinal: No Musculoskeletal: No Endocrine: No HEENT: No Cancer: No Psychosocial: No Integumentary: No Blood Disorders: No Physical Exam Vital Signs Vital Signs - First Documented 09/12/18 22:04 Temp 97.9 Pulse 69 Resp 20 B/P (MAP) 112/73 (86) Pulse Ox 97 O2 Delivery Room Air Capillary Refill : Less Than 3 Seconds Height, Weight, BMI Height: 5'5.00" Weight: 110lbs. oz. 49.891851wt; BMI Method:Estimated Progress/Results/Core Measures Suspected Sepsis Recent Fever Within 48 Hours: No Infection Criteria Present: None New/Unexplained Altered Menta: No Sepsis Screen: No Definite Risk SIRS Temperature:97.9 Pulse: 69 Respiratory Rate: 20 Laboratory Tests 09/13/18 00:14: White Blood Count 8.6 Blood Pressure 112 /73 Mean: 86 Laboratory Tests 09/13/18 00:14: Creatinine 0.78, INR Comment 1.1, Platelet Count 278, Total Bilirubin 0.3 Results/Orders Lab Results Laboratory Tests Test 09/13/18 00:04 09/13/18 00:14 Range/Units Urine Color YELLOW Urine Clarity CLEAR Urine pH 5 5-9 Urine Specific [place] 1.010 L 1.016-1.022 Urine Protein NEGATIVE NEGATIVE Urine Glucose (UA) NEGATIVE NEGATIVE Urine Ketones NEGATIVE NEGATIVE Urine Nitrite NEGATIVE NEGATIVE Urine Bilirubin NEGATIVE NEGATIVE Urine Urobilinogen NORMAL NORMAL MG/DL Urine Leukocyte Esterase 2+ H NEGATIVE Urine RBC (Auto) 2+ H NEGATIVE Urine RBC NONE /HPF Urine WBC 0-2 /HPF Urine Squamous Epithelial Cells 0-2 /HPF Urine Crystals NONE /LPF Urine Bacteria FEW H /HPF Urine Casts NONE /LPF Urine Mucus NEGATIVE /LPF Urine Culture Indicated NO White Blood Count 8.6 4.3-11.0 10^3/uL Red Blood Count 4.62 4.35-5.85 10^6/uL Hemoglobin 13.5 11.5-16.0 G/DL Hematocrit 41 35-52 % Mean Corpuscular Volume 88 80-99 FL Mean Corpuscular Hemoglobin 29 25-34 PG Mean Corpuscular Hemoglobin Concent 33 32-36 G/DL Red Cell Distribution Width 12.6 10.0-14.5 % Platelet Count 278 130-400 10^3/uL Mean Platelet Volume 9.9 7.4-10.4 FL Neutrophils (%) (Auto) 56 42-75 % Lymphocytes (%) (Auto) 31 12-44 % Monocytes (%) (Auto) 12 0-12 % Eosinophils (%) (Auto) 1 0-10 % Basophils (%) (Auto) 0 0-10 % Neutrophils # (Auto) 4.8 1.8-7.8 X 10^3 Lymphocytes # (Auto) 2.7 1.0-4.0 X 10^3 Monocytes # (Auto) 1.0 0.0-1.0 X 10^3 Eosinophils # (Auto) 0.1 0.0-0.3 10^3/uL Basophils # (Auto) 0.0 0.0-0.1 10^3/uL Prothrombin Time 14.3 12.2-14.7 SEC INR Comment 1.1 0.8-1.4 Activated Partial Thromboplast Time 30 24-35 SEC Sodium Level 141 135-145 MMOL/L Potassium Level 3.8 3.6-5.0 MMOL/L Chloride Level 102 98-107 MMOL/L Carbon Dioxide Level 28 21-32 MMOL/L Anion Gap 11 5-14 MMOL/L Blood Urea Nitrogen 20 H 7-18 MG/DL Creatinine 0.78 0.60-1.30 MG/DL Estimat Glomerular Filtration Rate > 60 BUN/Creatinine Ratio 26 Glucose Level 65 L 70-105 MG/DL Calcium Level 9.9 8.5-10.1 MG/DL Corrected Calcium 9.5 8.5-10.1 MG/DL Magnesium Level 2.8 H 1.8-2.4 MG/DL Total Bilirubin 0.3 0.1-1.0 MG/DL Aspartate Amino Transf (AST/SGOT) 20 5-34 U/L Alanine Aminotransferase (ALT/SGPT) 13 0-55 U/L Alkaline Phosphatase 60 40-136 U/L Troponin I < 0.028 <0.028 NG/ML B-Type Natriuretic Peptide 15.3 <100.0 PG/ML Total Protein 7.3 6.4-8.2 GM/DL Albumin 4.5 3.2-4.5 GM/DL Amylase Level 74 25-125 U/L Lipase 36 8-78 U/L Free Thyroxine 1.01 0.70-1.48 NG/DL TSH [place] Testing 9.49 H 0.35-4.94 UIU/ML My Orders Orders - AZIZA SERRANO DO Acute Abd Series (09/13/18 00:33) Saline Lock/Iv-Start (09/13/18 00:33) Ondansetron Injection (Zofran Injectio (09/13/18 00:45) Hyoscyamine Sl Tablet (Levsin Sl Tablet) (09/13/18 00:45) Saline Lock/Iv-Start (09/13/18 00:33) Ekg Tracing (09/13/18 00:33) Monitor-Rhythm Ecg Trace Only (09/13/18 00:33) Amylase (09/13/18 00:33) BNP (09/13/18 00:33) Cbc With Automated Diff (09/13/18 00:33) Comprehensive Metabolic Panel (09/13/18 00:33) Lipase (09/13/18 00:33) Magnesium (09/13/18 00:33) Protime With Inr (09/13/18 00:33) Partial Thromboplastin Time (09/13/18 00:33) Thyroid Analyzer (09/13/18 00:33) Troponin I (09/13/18 00:33) Ua Culture If Indicated (09/13/18 00:33) Ct Grace Chest/Noang Abd-Pelv W (09/13/18 01:09) Free T4 (Free Thyroxine) (09/13/18 00:14) Iohexol Injection (Omnipaque 350 Mg/Ml 1 (09/13/18 02:15) Received Contrast (Hold Metformin- Contr (09/13/18 02:15) Medications Given in ED Current Medications Medications Dose Ordered Sig/Blanche Route Start Time Stop Time Status Last Admin Dose Admin Hyoscyamine Sulfate 0.125 mg ONCE ONCE SL 09/13/18 00:45 09/13/18 00:46 DC 09/13/18 00:45 0.125 MG Iohexol 150 ml ONCE ONCE IV 09/13/18 02:15 09/13/18 02:16 DC 09/13/18 02:03 125 ML Ondansetron HCl 4 mg ONCE ONCE IVP 09/13/18 00:45 09/13/18 00:46 DC 09/13/18 00:44 4 MG Vital Signs/I&O 09/12/18 22:04 Temp 97.9 Pulse 69 Resp 20 B/P (MAP) 112/73 (86) Pulse Ox 97 O2 Delivery Room Air Capillary Refill : Less Than 3 Seconds Blood Pressure Mean: 86 Departure Impression Primary Impression: Palpitations Additional Impression: Constipation Disposition: 01 HOME, SELF-CARE Condition: Stable Departure-Patient Inst. Referrals: JORGE LUIS DUPONT MD (PCP/Family) Primary Care Physician Patient Instructions: Constipation, Adult (DC), Palpitations (DC) Add. Discharge Instructions: CLEAR LIQUIDS--WATER, BROTH, JELLO, GATORADE BRATS DIET--BANANAS, RICE, APPLESAUCE, TOAST, SALTINES TAKE MIRALAX DAILY--MAY INCREASE DOSE TO TWICE A DAY IF NEEDED OVER THE COUNTER MEDICATIONS FOR GAS FOLLOW UP WITH YOUR DR THIS WEEK FOR FURTHER CARE All discharge instructions reviewed with patient and/or family. Voiced understanding. AZIZA SERRANO DO Sep 13, 2018 02:47
[2018-09-13 02:55] VITALS: BP 107/68
--- NOTE | 2018-09-13 08:03 | Diagnostic Imaging Report ---
INDICATION: Chest pain and abdominal pain. TECHNIQUE: Multiple contiguous axial images were obtained through the chest, abdomen and pelvis after the uneventful bolus administration of intravenous contrast. Sagittal, coronal and MIP reconstructions were then performed. FINDINGS: There are no discrete pulmonary nodules, masses or infiltrates. There is no pleural or pericardial fluid. There is no pneumothorax. There is no pathologically enlarged adenopathy in the chest. Heart size is normal. The thoracic aorta is normal in caliber without evidence of dissection. There are no filling defects seen within the pulmonary arteries to suggest pulmonary embolism. There are mild degenerative changes in thoracic spine. The liver is normal in size without focal lesions. Gallbladder is unremarkable. There is no biliary ductal dilatation. Spleen is normal. The pancreas and adrenal glands are unremarkable. There are small bilateral renal cysts. Aorta is nonaneurysmal. Bowel gas pattern is nonspecific. There is no free air. There is no ascites. There are no focal inflammatory changes. Bladder is normal. There is no pelvic mass, adenopathy or free fluid. There are minimal degenerative changes in the spine. IMPRESSION: No acute abnormality in the chest. Specifically, there is no evidence of pulmonary embolism or aortic dissection. No acute abnormality in the abdomen or pelvis. Bilateral renal cysts. Dictated by: Dictated on workstation # [id number]
--- NOTE | 2018-09-13 08:26 | Diagnostic Imaging Report ---
INDICATION: Stomach ache and bloating. TECHNIQUE: Single view chest with supine and upright radiographs of the abdomen. CORRELATION STUDY: None FINDINGS: Frontal radiograph of the chest demonstrates no acute abnormality. Supine and upright radiographs of the abdomen demonstrates the bowel gas pattern to be unremarkable and without evidence for obstruction. No free air is seen under the diaphragms. No pathologic intraabdominal calcifications. Mild leftward curvature at the thoracolumbar spine. IMPRESSION: 1. Negative for acute cardiopulmonary abnormality. 2. Unremarkable appearing bowel gas pattern. Dictated by: Dictated on workstation # [id number]
== END 2018-09-13 02:56 | disposition home or self-care (01) ==
LOC: EDUNIT# 21:58 → ER 21:59
DX: R00.2 Palpitations (principal); K59.00 Constipation, unspecified; Z88.2 Allergy status to sulfonamides; Z88.5 Allergy status to narcotic agent; Z88.8 Allergy status to other drugs, medicaments and biological substances; Z90.49 Acquired absence of other specified parts of digestive tract; Z90.710 Acquired absence of both cervix and uterus
CPT/HCPCS: 36415; 71275; 74022; 74177; 80053; 81000; 82150; 83690; 83735; 83880; 84439; 84443; 84484; 85025; 85610; 85730; 93005; 93041; 96374

== ENCOUNTER 2018-11-30 06:58 | Emergency (ER) | payer BC ==
[~2018-11-30] VITALS: Ht 165.1 cm; Wt 49.0 kg
--- OUTSIDE RECORDS SUMMARY | 2018-11-30 07:06 | XMS REPORT ---
Author Author Migration, Doctor Organization [facility] Address Unknown Phone Unavailable Care Team Providers Care Quick Mixer Operator Name Role Phone Migration, Doctor Unavailable Unavailable PROBLEMS Type Condition ICD9-CM Code [id number] Code Onset Dates Condition Status SNOMED Code Problem Routine general medical examination at health care facility V70.0 Active 330187820 Problem Decreased libido 799.81 Active 3023458 Problem Abnormal weight gain 783.1 Active 336139885 Problem Unspecified hypothyroidism 244.9 Active 47079815 Problem Family history of other cardiovascular diseases V17.49 Active 071626794 Problem Dyslipidemia E78.5 Active 318291832 Problem Other malaise and fatigue 780.79 Active 734360683 Problem Unspecified menopausal and postmenopausal disorder 627.9 Active 820419184 Problem Benign paroxysmal positional vertigo 386.11 Active 065341579 Problem Other and unspecified hyperlipidemia 272.4 Active 76016499 ALLERGIES No Information ENCOUNTERS Encounter Location Date Diagnosis [place] [address] [place] [address] Aug, Dyslipidemia E78.5 [facility] [id number] [id number] Aug, Fatigue, unspecified type R53.83 [facility] [address] [facility] [id number] [id number] Aug, [address] [place] [address] [id number] [id number] Mar, Dental examination Z01.20 and Dental caries on smooth surface penetrating into pulp K02.63 [place] [address] [place] [id number] [place] [address] May, Dental caries K02.9 [facility] [address], [place] [address] May, Dental examination Z01.20 [place] [address] [place] [id number] [place] [address] 14 Sep, 2014 [facility] [address] [id number] [place] [address] 13 Sep, 2014 [facility] [place] [facility] [address] [id number] [place] [address] 10 Apr, 2014 [facility] [place] [facility] [address] [id number] [place] [address] 10 Apr, 2014 [facility] [place] [facility] [address] [id number] [place] [address] 17 Nov, 2013 [facility] [place] [facility] [address] [id number] [place] [address] 17 Nov, 2013 [facility] [place] [facility] [address] [id number] [place] [address] 11 Nov, 2013 [facility] [place] [facility] [address] [id number] [place] [address] Nov, [facility] [place] [facility] [address] [id number] [place] [address] Nov, [facility] [place] [facility] [address] [id number] [place] [address] Nov, [facility] [place] [facility] [address] [id number] [place] [address] 05 Nov, 2013 [facility] [place] [facility] [address] [id number] [place] [address] Nov, [facility] [place] [facility] [address] [id number] [place] [address] October, [facility] [place] [facility] [address] [id number] [place] [address] October, [facility] [place] [facility] [address] [id number] [place] [address] 15 Sep, 2013 [facility] [place] [facility] [address] [id number] [place] [address] 15 Sep, 2013 [facility] [address] [facility] [id number], [place] [address] Sep, [facility] [address], [place] [address] Sep, [facility] [address] [id number], [place] [address] Sep, [facility] [address] [facility] [id number], [place] [address] Sep, [facility] [address] [facility] [id number], [place] [address] Sep, [facility] [address], [place] [address] Sep, [facility] [address]100[place], [place] [address] Sep, [facility] [address], [place] [address] Sep, [facility] [address], [place] [address] Sep, [facility] [address] [place] [id number], [place] [address] Sep, [facility] [address] [id number], [place] [address] Sep, [facility] [address] [id number], [place] [address] Sep, [facility] [address] [id number], [place] [address] Sep, IMMUNIZATIONS No Known Immunizations SOCIAL HISTORY Never Assessed REASON FOR VISIT EMR-[facility] PLAN OF CARE VITAL SIGNS MEDICATIONS Unknown Medications RESULTS No Results PROCEDURES No Known procedures INSTRUCTIONS MEDICATIONS ADMINISTERED No Known Medications MEDICAL (GENERAL) HISTORY Type Description Date Medical History thyroid disorder Medical History irritable bowel syndrome Surgical History arthroscopic knee surgery left 1995 Surgical History hysterectomy, abdominal 1992 Surgical History rhinoplasty 1995 Surgical History toe surgery along time ago 1974 Hospitalization History Surgery(s)/Childbirth(s) only
--- OUTSIDE RECORDS SUMMARY | 2018-11-30 07:06 | XMS REPORT ---
Author Author Migration, Doctor Organization [facility] Address Unknown Phone Unavailable Care Team Providers Care Dermatologist Name Role Phone Migration, Doctor Unavailable Unavailable PROBLEMS Type Condition ICD9-CM Code [id number] Code Onset Dates Condition Status SNOMED Code Problem Routine general medical examination at health care facility V70.0 Active 459984964 Problem Decreased libido 799.81 Active 4760623 Problem Abnormal weight gain 783.1 Active 211806283 Problem Unspecified hypothyroidism 244.9 Active 09332980 Problem Family history of other cardiovascular diseases V17.49 Active 201358118 Problem Dyslipidemia E78.5 Active 253966425 Problem Other malaise and fatigue 780.79 Active 517689523 Problem Unspecified menopausal and postmenopausal disorder 627.9 Active 984497105 Problem Benign paroxysmal positional vertigo 386.11 Active 799683145 Problem Other and unspecified hyperlipidemia 272.4 Active 51130253 ALLERGIES No Information ENCOUNTERS Encounter Location Date Diagnosis [place] [address] [place] [address] Aug, Dyslipidemia E78.5 [facility] [id number] [id number] Aug, Fatigue, unspecified type R53.83 [facility] [address] [facility] [id number] [id number] Aug, [address] [address] [id number] [id number] Mar, Dental examination Z01.20 and Dental caries on smooth surface penetrating into pulp K02.63 [place] [address] [place] [id number] [place] [address] May, Dental caries K02.9 [place] [address] [address] May, Dental examination Z01.20 [place] [address] [place] [address] [id number] [place] [address] 14 Sep, 2014 [facility] [address] [id number] [place] [address] 13 Sep, 2014 [facility] [place] [facility] [address] [id number] [place] [address] 10 Apr, 2014 [facility] [place] [facility] [address] [id number] [place] [address] 10 Apr, 2014 [facility] [place] [facility] [address] [id number] [place] [address] 17 Nov, 2013 [facility] [place] [facility] [address] [id number] [place] [address] 17 Nov, 2013 [facility] [place] [facility] [address] [id number] [place] [address] 11 Nov, 2013 [facility] [place] [facility] [address] [id number] [place] [address] Nov, [facility] [place] [facility] [address] [id number] [place] [address] Nov, [facility] [place] [facility] [address] [id number] [place] [address] Nov, [facility] [place] [facility] [address] [id number] [place] [address] 05 Nov, 2013 [facility] [place] [facility] [address] [id number] [place] [address] Nov, [facility] [place] [facility] [address] [id number] [place] [address] October, [facility] [place] [facility] [address] [id number] [place] [address] October, [facility] [place] [facility] [address] [id number] [place] [address] 15 Sep, 2013 [facility] [place] [facility] [address] [id number] [place] [address] 15 Sep, 2013 [facility] [address] [facility] [id number] [address] Sep, [facility] [address] [address] Sep, [facility] [address] [place] [id number] [address] Sep, [facility] [address] [facility] [id number] [place] [address] Sep, [facility] [address] [facility] [id number] [place] [address] Sep, [facility] [address] [address] Sep, [facility] [address]00565100[place] [address] Sep, [facility] [address]65100[place] [address] Sep, [facility] [address]65[address] [address] Sep, [facility] [address] [id number] [address] Sep, [facility] [address] [place] [address] [id number] [address] Sep, [facility] [address] [id number] [address] Sep, [facility] [address] [place] [address] [id number] [address] Sep, IMMUNIZATIONS No Known Immunizations SOCIAL HISTORY Never Assessed REASON FOR VISIT EMR-[facility] PLAN OF CARE VITAL SIGNS MEDICATIONS Unknown [...]
--- OUTSIDE RECORDS SUMMARY | 2018-11-30 07:07 | XMS REPORT | Continuity of Care Document ---
Author Organization Unknown Address Unknown Allergies Active Description Code Type Severity Reaction Onset Reported/Identified Relationship to Patient Clinical Status Yes naproxen [id number] Drug Allergy Mild N/A 02/20/2009 Yes morphine [id number] Drug Allergy Mild burning sensati 04/09/2010 Yes Keflex Drug Allergy N/A N/A 09/14/2013 Yes morphine Drug Allergy N/A N/A 09/14/2013 Yes Sulfa (Sulfonamide Antibiotics) [id number] Drug Allergy Moderate RASH 09/13/2018 Medications There is no data. Problems Date Dx Coded Attending Type Code Diagnosis Diagnosed By 12/29/2007 JUDY MCGUIRE APRN 300.00 AN ANXIETY UNSPEC 12/29/2007 JUDY MCGUIRE APRN S 309.0 AD ADJ D/O W DEPRESSED 12/29/2007 JUDY MCGUIRE APRN S 300.00 AN ANXIETY UNSPEC 12/29/2007 JUDY MCGUIRE APRN S 309.0 AD ADJ D/O W DEPRESSED 12/29/2007 JUDY MCGUIRE APRN S 300.00 AN ANXIETY UNSPEC 12/29/2007 JUDY MCGUIRE APRN S 309.0 AD ADJ D/O W DEPRESSED 09/14/2013 JUDY MCGUIRE APRN 386.11 VERTIGO- BENIGN PAROXYSMAL POSITIONAL 09/14/2013 JUDY MCGUIRE APRN 627.9 MENOPAUSAL AND POSTMENOPAUSAL DISORDER UNSPECIFIED 09/14/2013 JUDY MCGUIRE APRN 780.79 fatigue 09/14/2013 JUDY MCGUIRE APRN 783.1 WEIGHT GAIN ABNORMAL 09/14/2013 JUDY MCGUIRE APRN S 799.81 libido 09/14/2013 JUDY MCGUIRE APRN V17.49 FAM HX CAD (DISEASE) 09/14/2013 JUDY MCGUIRE APRN V70.0 EXAM - ROUTINE H&P 09/14/2013 MAYNOR BOWLING ALLEY OPERATOR, JUDY S 386.11 VERTIGO- BENIGN PAROXYSMAL POSITIONAL 09/14/2013 MAYNOR BOWLING ALLEY OPERATOR, JUDY S 627.9 MENOPAUSAL AND POSTMENOPAUSAL DISORDER UNSPECIFIED 09/14/2013 MAYNOR BOWLING ALLEY OPERATOR, JUDY S 780.79 fatigue 09/14/2013 MAYNOR BOWLING ALLEY OPERATOR, JUDY S 783.1 WEIGHT GAIN ABNORMAL 09/14/2013 MAYNOR LARIOSN, JUDY S 799.81 libido 09/14/2013 MAYNOR LARIOSN, JUDY S V17.49 FAM HX CAD (DISEASE) 09/14/2013 MAYNOR BOWLING ALLEY OPERATOR, JUDY S V70.0 EXAM - ROUTINE H&P 09/14/2013 MAYNOR BOWLING ALLEY OPERATOR, JUDY S 386.11 VERTIGO- BENIGN PAROXYSMAL POSITIONAL 09/14/2013 MAYNOR BOWLING ALLEY OPERATOR, JUDY S 627.9 MENOPAUSAL AND POSTMENOPAUSAL DISORDER UNSPECIFIED 09/14/2013 MAYNOR LARIOSN, JUDY S 780.79 fatigue 09/14/2013 MAYNOR LARIOSN, JUDY S 783.1 WEIGHT GAIN ABNORMAL 09/14/2013 MAYNOR LARIOSN, JUDY S 799.81 libido 09/14/2013 MAYNOR LARIOSN, JUDY S V17.49 FAM HX CAD (DISEASE) 09/14/2013 MAYNOR LARIOSN, JUYD S V70.0 EXAM - ROUTINE H&P 09/17/2013 MAYNOR BOWLING ALLEY OPERATOR, JUDY S 244.9 HYPOTHYROIDISM 09/17/2013 MAYNOR BOWLING ALLEY OPERATOR, JUDY S 244.9 HYPOTHYROIDISM 09/17/2013 MAYNOR BOWLING ALLEY OPERATOR, JUDY S 244.9 HYPOTHYROIDISM 09/18/2013 MAYNOR BOWLING ALLEY OPERATOR, JUDY S 272.4 HYPERLIPIDEMIA 09/18/2013 MAYNOR BOWLING ALLEY OPERATOR, JUDY S 272.4 HYPERLIPIDEMIA 04/10/2017 NICOLAS FLOYD, OSWALDO Cedillo Ot K02.9 DENTAL CARIES, UNSPECIFIED 04/10/2017 NICOLAS FLOYD, OSWALDO Cedillo Ot K08.89 OTHER SPECIFIED DISORDERS OF TEETH AND S 04/04/2018 ALVARO COELHO BOWLING ALLEY OPERATOR Ot M54.5 LOW BACK PAIN 04/04/2018 COELHO, PETER J BOWLING ALLEY OPERATOR Ot M62.830 MUSCLE SPASM OF BACK 04/04/2018 ALVARO COELHO BOWLING ALLEY OPERATOR Ot Z88.5 ALLERGY STATUS TO NARCOTIC AGENT STATUS 04/04/2018 ALVARO COELHO BOWLING ALLEY OPERATOR Ot Z88.8 ALLERGY STATUS TO OTH DRUG/MEDS/BIOL SUB 04/06/2018 ALVARO COELHO APRN Ot M54.5 LOW BACK PAIN 04/06/2018 ALVARO COELHO APRN Ot M62.830 MUSCLE SPASM OF BACK 04/06/2018 ALVARO COELHO BOWLING ALLEY OPERATOR Ot Z88.5 ALLERGY STATUS TO NARCOTIC AGENT STATUS 04/06/2018 ALVARO COELHO BOWLING ALLEY OPERATOR Ot Z88.8 ALLERGY STATUS TO OTH DRUG/MEDS/BIOL SUB 04/10/2018 ALVARO COELHO APRN Ot M54.5 LOW BACK PAIN 04/10/2018 ALVARO COELHO BOWLING ALLEY OPERATOR Ot M62.830 MUSCLE SPASM OF BACK 04/10/2018 ALVARO COELHO BOWLING ALLEY OPERATOR Ot Z88.5 ALLERGY STATUS TO NARCOTIC AGENT STATUS 04/10/2018 ALVARO COELHO BOWLING ALLEY OPERATOR Ot Z88.8 ALLERGY STATUS TO OTH DRUG/MEDS/BIOL SUB 09/13/2018 ZACH DO, AZIZA K Ot K59.00 CONSTIPATION, UNSPECIFIED 09/13/2018 ZACH DO AZIZA K Ot R00.2 PALPITATIONS 09/13/2018 ZACH DO AZIZA K Ot R41.0 DISORIENTATION, UNSPECIFIED 09/13/2018 ZACH DO AZIZA K Ot Z88.2 ALLERGY STATUS TO SULFONAMIDES STATUS 09/13/2018 ZACH SYLVIA JOYCEA K Ot Z88.5 ALLERGY STATUS TO NARCOTIC AGENT STATUS 09/13/2018 ZACH DO AZIZA K Ot Z88.8 ALLERGY STATUS TO OTH DRUG/MEDS/BIOL SUB 09/13/2018 ZACH DO AZIZA K Ot Z90.49 ACQUIRED ABSENCE OF OTHER SPECIFIED PART 09/13/2018 ZACH DO AZIZA K Ot Z90.710 ACQUIRED ABSENCE OF BOTH CERVIX AND UTER 09/15/2018 ZACH DO AZIZA K Ot K59.00 CONSTIPATION, UNSPECIFIED 09/15/2018 ZACH DO, AZIZA K Ot R00.2 PALPITATIONS 09/15/2018 ZACH DO, AZIZA K Ot R41.0 DISORIENTATION, UNSPECIFIED 09/15/2018 AZIZA SERRANO DO Ot Z88.2 ALLERGY STATUS TO SULFONAMIDES STATUS 09/15/2018 AZIZA SERRANO DO Ot Z88.5 ALLERGY STATUS TO NARCOTIC AGENT STATUS 09/15/2018 AZIZA SERRANO DO Ot Z88.8 ALLERGY STATUS TO OTH DRUG/MEDS/BIOL SUB 09/15/2018 AZIZA SERRANO DO Ot Z90.49 ACQUIRED ABSENCE OF OTHER SPECIFIED PART 09/15/2018 AZIZA SERRANO DO Ot Z90.710 ACQUIRED ABSENCE OF BOTH CERVIX AND UTER Procedures Code [place] [address] UA W/ CULTURE IF INDICATED 09/14/2013 13487 ROUTINE VENIPUNCTURE 09/14/2013 87507 CBC 09/15/2013 3233480 GFR CALC (RESULT ONLY) 09/15/2013 86571 CMP 09/15/2013 29019 TSH 09/15/2013 86055 CULTURE URINE 09/16/2013 15261 ROUTINE VENIPUNCTURE 09/18/2013 32483 LIPID PANEL 09/18/2013 78524 ROUTINE VENIPUNCTURE 11/16/2013 27870 TSH 11/16/2013 Results Test Result Range Complete urinalysis with reflex to culture - 04/04/18 11:18 Urine color determination YELLOW NRG Urine clarity determination CLEAR NRG Urine pH measurement by test strip 5 5-9 Specific gravity of urine by test strip 1.010 1.016-1.022 Urine protein assay by test strip, semi-quantitative [...] sediment leukocyte count by microscopy (number/high power field) RARE NRG Bacteria detection in urine sediment by light microscopy NEGATIVE NRG Squamous epithelial cells detection in urine sediment by light microscopy 2-5 NRG Crystals detection in urine sediment by light microscopy NONE NRG Casts detection in urine sediment by light microscopy NONE NRG Mucus detection in urine sediment by light microscopy NEGATIVE NRG Complete urinalysis with reflex to culture NO NRG Complete urinalysis with reflex to culture - 09/13/18 00:04 Urine color determination YELLOW NRG Urine clarity determination CLEAR NRG Urine pH measurement by test strip 5 5-9 Specific gravity of urine by test strip 1.010 1.016-1.022 Urine protein assay by test strip, semi-quantitative NEGATIVE NEGATIVE Urine glucose detection by automated test strip NEGATIVE NEGATIVE Erythrocytes detection in urine sediment by light microscopy 2+ NEGATIVE Urine ketones detection by automated test strip NEGATIVE NEGATIVE Urine nitrite detection by test strip NEGATIVE NEGATIVE Urine total bilirubin detection by test strip NEGATIVE NEGATIVE Urine urobilinogen measurement by automated test strip (mass/volume) NORMAL NORMAL Urine leukocyte esterase detection by dipstick 2+ NEGATIVE Automated urine sediment erythrocyte count by microscopy (number/high power field) NONE NRG Automated urine sediment leukocyte count by microscopy (number/high power field) [HPF] NRG Bacteria detection in urine sediment by light microscopy FEW NRG Squamous epithelial cells detection in urine sediment by light microscopy 0-2 NRG Crystals detection in urine sediment by light microscopy NONE NRG Casts detection in urine sediment by light microscopy NONE NRG Mucus detection in urine sediment by light microscopy NEGATIVE NRG Complete urinalysis with reflex to culture NO NRG Complete blood count (CBC) with automated white blood cell (WBC) differential - 09/13/18 00:14 Blood leukocytes automated count (number/volume) 8.6 10*3/uL 4.3-11.0 Blood erythrocytes automated count (number/volume) 4.62 10*6/uL 4.35-5.85 Venous blood hemoglobin measurement (mass/volume) 13.5 g/dL 11.5-16.0 Blood hematocrit (volume fraction) 41 % 35-52 Automated erythrocyte mean corpuscular volume 88 [foz_us] 80-99 Automated erythrocyte mean corpuscular hemoglobin (mass per erythrocyte) 29 pg 25-34 Automated erythrocyte mean corpuscular hemoglobin concentration measurement (mass/volume) 33 g/dL 32-36 Automated erythrocyte distribution width ratio 12.6 % 10.0- 14.5 Automated blood platelet count (count/volume) 278 10*3/uL 130-400 Automated blood platelet mean volume measurement 9.9 [foz_us] 7.4-10.4 Automated blood neutrophils/100 leukocytes 56 % 42-75 Automated blood lymphocytes/100 leukocytes 31 % 12-44 Blood monocytes/100 leukocytes 12 % 0-12 Automated blood eosinophils/100 leukocytes 1 % 0-10 Automated blood basophils/100 leukocytes 0 % 0-10 Blood neutrophils automated count (number/volume) 4.8 10*3 1.8-7.8 Blood lymphocytes automated count (number/volume) 2.7 10*3 1.0-4.0 Blood monocytes automated count (number/volume) 1.0 10*3 0.0- 1.0 Automated eosinophil count 0.1 10*3/uL 0.0-0.3 Automated blood basophil count (count/volume) 0.0 10*3/uL 0.0-0.1 PT panel in platelet poor plasma by coagulation assay - 09/13/18 00:14 Prothrombin time (PT) in platelet poor plasma by coagulation assay 14.3 s 12.2-14.7 INR in platelet poor plasma or blood by coagulation assay 1.1 0.8-1.4 Activated partial thromboplastin time (aPTT) in platelet poor plasma bycoagulation assay - 09/13/18 00:14 Activated partial thromboplastin time (aPTT) in platelet poor plasma bycoagulation assay 30 s 24-35 Comprehensive metabolic panel - 09/13/18 00:14 Serum or plasma sodium measurement (moles/volume) 141 mmol/L 135-145 Serum or plasma potassium measurement (moles/volume) 3.8 mmol/L 3.6-5.0 Serum or plasma chloride measurement (moles/volume) 102 mmol/L 98-107 Carbon dioxide 28 mmol/L 21-32 Serum or plasma anion gap determination (moles/volume) 11 mmol/L 5-14 Serum or plasma urea nitrogen measurement (mass/volume) 20 mg/dL 7-18 Serum or plasma creatinine measurement (mass/volume) 0.78 mg/dL 0.60-1.30 Serum or plasma urea nitrogen/creatinine mass ratio 26 NRG Serum or plasma creatinine measurement with calculation of estimated glomerular filtration rate > NRG Serum or plasma glucose measurement (mass/volume) 65 mg/dL 70-105 Serum or plasma calcium measurement (mass/volume) 9.9 mg/dL 8.5-10.1 Serum or plasma total bilirubin measurement (mass/volume) 0.3 mg/dL 0.1-1.0 Serum or plasma alkaline phosphatase measurement (enzymatic activity/volume) 60 U/L 40-136 Serum or plasma aspartate aminotransferase measurement (enzymatic activity/volume) 20 U/L 5-34 Serum or plasma alanine aminotransferase measurement (enzymatic activity/volume) 13 U/L 0-55 Serum or plasma protein measurement (mass/volume) 7.3 g/dL 6.4-8.2 Serum or plasma albumin measurement (mass/volume) 4.5 g/dL 3.2-4.5 CALCIUM CORRECTED 9.5 mg/dL 8.5-10.1 Magnesium - 09/13/18 00:14 Magnesium 2.8 mg/dL 1.8-2.4 Serum or plasma troponin i.cardiac measurement (mass/volume) - 09/13/18 00:14 Serum or plasma troponin i.cardiac measurement (mass/volume) < ng/mL <0.028 Serum or plasma amylase measurement (enzymatic activity/volume) - 09/13/18 00:14 Serum or plasma amylase measurement (enzymatic activity/volume) 74 U/L 25-125 Serum or plasma lithium measurement (moles/volume) - 09/13/18 00:14 BNP level 15.3 pg/mL <100.0 Lipase - 09/13/18 00:14 Lipase 36 U/L 8-78 Serum or plasma thyroxine (T4) free measurement (mass/volume) - 09/13/18 00:14 Serum or plasma thyroxine (T4) free measurement (mass/volume) 1.01 ng/dL 0.70-1.48 Serum or plasma thyrotropin measurement by detection limit <=0.05 miu/l (units/volume) - 09/13/18 00:14 Serum or plasma thyrotropin measurement by detection limit <=0.05 miu/l (units/volume) 9.49 u[iU]/mL 0.35-4.94 Encounters ACCT No. Visit Date/Time Discharge Status Pt. Type Provider Facility Loc./Unit Complaint [id number] 11/16/2013 14:58:00 11/16/2013 23:59:59 [facility] Outpatient JUDY MCGUIRE APRN [id number] 09/18/2013 09:51:00 09/18/2013 23:59:59 [facility] Outpatient JUDY MCGUIRE APRN [id number] 09/14/2013 17:40:00 09/14/2013 23:59:59 [facility] Outpatient JUDY MCGUIRE APRN [id number] 09/12/2018 21:59:00 09/13/2018 02:56:00 DIS Emergency AZIZA SERRANO DO [facility] ER STOMACH PAIN/BLOATING/NAUSEA [id number] 04/04/2018 10:17:00 04/04/2018 12:15:00 DIS Emergency ALVARO COELHO APRN [facility] ER BACK PAIN;NAUSEA [id number] 04/10/2017 10:10:00 04/10/2017 10:36:00 DIS Emergency NICOLAS FLOYD, OSWALDO Cedillo [facility] ER R SIDE EAR PAIN, SWOLLEN GLANDS
[2018-11-30] MEDS ORDERED: AUGMENTIN 875 MG TAB (AMOXICILLIN/CLAVULANATE) ONE (08:42)
[2018-11-30 09:15] VITALS: BP 97/70
[2018-11-30] MEDS ORDERED: AUGMENTIN 875 MG TAB (AMOXICILLIN/CLAVULANATE) PO ONE (12:45)
== END 2018-11-30 09:15 | disposition home or self-care (01) ==
LOC: EDUNIT# 06:58 → ER 07:00
DX: K04.7 Periapical abscess without sinus (principal)
CPT/HCPCS: 99283

== ENCOUNTER 2018-12-28 22:55 | Emergency (ER) | payer BC | END 2018-12-28 23:33 | disposition home or self-care (01) | LOC: ER 22:55 ==

== ENCOUNTER 2019-05-13 08:54 | Emergency (ER) | payer BC ==
[~2019-05-13] VITALS: Ht 165 cm; Wt 50.0 kg
[~2019-05-13 08:54] MED LIST changes: +CLIN300C11 PO; +METH4TAB PO
[2019-05-13] MEDS ORDERED: BENZ100C18 PO (09:16)
--- NOTE | 2019-05-13 09:16 | ED Cough/URI ---
General Chief Complaint: Cough/Cold/Flu Symptoms Stated Complaint: COUGH Source: patient Exam Limitations: no limitations History of Present Illness Date Seen by Provider: May 13, 2019 Time Seen by Provider: 08:55 Initial Comments Patient resents to ER with her significant other chief complaint that she has some issues with allergies at work. In the last couple days she's been having nasal congestion and mild rhinorrhea and a cough but nonproductive. No wheezing, COPD, asthma, smoking. No fevers or chills. Allergies and Home Medications Allergies Coded Allergies: Sulfa (Sulfonamide Antibiotics) (Verified Allergy, Intermediate, RASH, 09/13/18) morphine (Unverified Allergy, Mild, burning sensation, 04/09/10) naproxen (Unverified Allergy, Mild, 02/20/09) Home Medications Clindamycin HCl 300 Mg Capsule, 300 MG PO QID Prescribed by: AZIZA SERRANO on 12/28/18 2315 Magnesium Citrate 300 Ml Btl, 0 PO UD USE PER PACKAGE INSTRUCTIONS. Prescribed by: ANDRES BRISENO on 02/20/09 1407 Methocarbamol 750 Mg Tablet, 750 MG PO Q4H PRN for PAIN-MODERATE TO SEVERE Prescribed by: ALVARO COELHO on 04/04/18 1130 Methylprednisolone 4 Mg Tab.ds.pk, 4 MG PO UD Prescribed by: AZIZA SERRANO on 12/28/18 2315 Tramadol Hcl 50 Mg Tab, 50-100 MG PO Q6H PRN Prescribed by: ANDRES BRISENO on 04/15/09 1709 Patient Home Medication List Home Medication List Reviewed: Yes Review of Systems Review of Systems Constitutional: No chills, No fever EENTM: No ear discharge, No ear pain Respiratory: cough; No phlegm, No short of breath, No wheezing Cardiovascular: No chest pain, No edema Gastrointestinal: No abdominal pain, No constipation, No diarrhea Genitourinary: No discharge, No dysuria Musculoskeletal: No back pain, No joint pain Past Ortpipl-Dzrtdp-Dodvwd Hx Patient Social History Alcohol Use: Denies Use Recreational Drug Use: No Smoking Status: Never a Smoker 2nd Hand Smoke Exposure: No Recent Foreign Travel: No Contact w/Someone Who Travel: No Recent Hopitalizations: No Immunizations Up To Date Tetanus Booster (TDap): Unknown PED Vaccines UTD: Yes Seasonal Allergies Seasonal Allergies: No Past Medical History Surgeries: Yes (HYST/BSO) Appendectomy, Hysterectomy, Oophorectomy, Orthopedic Respiratory: No Cardiac: No Neurological: No Genitourinary: No Gastrointestinal: Yes (TAKES MIRALAX, LAXATIVES AND ANTI-DIARRHEALS ON A REGULAR BASIS) Chronic Constipation, Chronic Diarrhea Musculoskeletal: No Endocrine: No HEENT: No Cancer: No Psychosocial: No Integumentary: No Blood Disorders: No Physical Exam Capillary Refill : Height: 5'5.00" Weight: 108lbs. oz. 48.078263vy; BMI Method:Stated General Appearance: WD/WN, no apparent distress Eyes: Bilateral Eye Normal Inspection, Bilateral Eye PERRL, Bilateral Eye EOMI HEENT: PERRL/EOMI, TMs normal, pharynx normal, other (bluish appearance to the nasal mucosa with clear rhinorrhea) Neck: non-tender, full range of motion, supple, normal inspection Respiratory: lungs clear, normal breath sounds, no respiratory distress, no accessory muscle use Cardiovascular: normal peripheral pulses, regular rate, rhythm Neurologic/Psychiatric: alert, normal mood/affect, oriented x 3 Skin: normal color, warm/dry Progress/Results/Core Measures Suspected Sepsis SIRS Temperature: Pulse: Respiratory Rate: Blood Pressure / Mean: Results/Orders Vital Signs/I&O Capillary Refill : Departure Impression Primary Impression: Allergic rhinitis with postnasal drip Additional Impression: Cough in adult Disposition: 01 HOME, SELF-CARE Condition: Stable Departure-Patient Inst. Decision time for Depature: 09:14 Referrals: NO,LOCAL PHYSICIAN (PCP) Primary Care Physician Patient Instructions: Cough, Adult (DC) Add. Discharge Instructions: Xyzal, Polly, Claritin or Zyrtec one tablet daily. alterations supervisor a bottle of fluticasone nasal spray and apply 1 puff each nostril daily for the next 4 weeks. Use vapor rubs and humidifiers at home while sleeping. Tessalon Perles 1 capsule every 6 hours as needed for cough. If not seeing improvement follow-up with primary care. All discharge instructions reviewed with patient and/or family. Voiced understanding. Scripts Benzonatate (TESSALON PERLES) 100 Mg Capsule 100 MG PO Q6H PRN for COUGH, #30 CAP 0 Refills Prov: WHITNEY GOMEZ 05/13/19 WHITNEY GOEMZ May 13, 2019 09:16 POS
[2019-05-13 09:21] VITALS: BP 121/65
--- OUTSIDE RECORDS SUMMARY | 2019-06-07 20:48 | XMS REPORT | Continuity of Care Document ---
Author Organization Unknown Address Unknown Phone Unavailable Allergies Active Description Code Type Severity Reaction Onset Reported/Identified Relationship to Patient Clinical Status Yes naproxen [id number] Drug Allergy Mild N/A 02/20/2009 Yes morphine [id number] Drug Allergy Mild burning sensati 04/09/2010 Yes Keflex Drug Allergy N/A N/A 09/14/2013 Yes morphine Drug Allergy N/A N/A 09/14/2013 Yes Sulfa (Sulfonamide Antibiotics) [id number] Drug Allergy Moderate RASH 2018 Medications There is no data. Problems Date [...] WEIGHT GAIN ABNORMAL 09/14/2013 JUDY MCGUIRE APRN 799.81 libido 09/14/2013 JUDY MCGUIRE APRN V17.49 FAM HX CAD (DISEASE) 09/14/2013 JUDY MCGUIRE APRN V70.0 EXAM - ROUTINE H&P 09/14/2013 [employer]NOR [employer], JUDY S 386.11 VERTIGO- BENIGN PAROXYSMAL POSITIONAL 09/14/2013 MAYNOR LARIOSN, JUDY S 627.9 MENOPAUSAL AND POSTMENOPAUSAL DISORDER UNSPECIFIED 09/14/2013 MAYNOR LARIOSN, JUDY S 780.79 fatigue 09/14/2013 MAYNOR LARIOSN, JUDY S 783.1 WEIGHT GAIN ABNORMAL 09/14/2013 MAYNOR LARIOSN, JUDY S 799.81 libido 09/14/2013 MAYNOR LARIOSN, JUDY S V17.49 FAM HX CAD (DISEASE) 09/14/2013 MAYNOR LARIOSN, JUDY S V70.0 EXAM - ROUTINE H&P 09/14/2013 MAYNOR LARIOSN, JUDY S 386.11 VERTIGO- BENIGN PAROXYSMAL POSITIONAL 09/14/2013 [employer], JUDY S 627.9 MENOPAUSAL AND POSTMENOPAUSAL DISORDER UNSPECIFIED 09/14/2013 MAYNOR LARIOSN, JUDY S 780.79 fatigue 09/14/2013 MAYNOR LARIOSN, JUDY S 783.1 WEIGHT GAIN ABNORMAL 09/14/2013 MAYNOR LARIOSN, JUDY S 799.81 libido 09/14/2013 MAYNOR LARIOSN, JUDY S V17.49 FAM HX CAD (DISEASE) 09/14/2013 MAYNOR LARIOSN, JUDY S V70.0 EXAM - ROUTINE H&P 09/17/2013 [employer], JUDY S 244.9 HYPOTHYROIDISM 09/17/2013 [employer], JUDY S 244.9 HYPOTHYROIDISM 09/17/2013 MAYNORBRIANNA LARIOSN, JUDY S 244.9 HYPOTHYROIDISM 09/18/2013 [employer], JUDY S 272.4 HYPERLIPIDEMIA 09/18/2013 [employer], JUDY S 272.4 HYPERLIPIDEMIA 04/10/2017 OSWALDO VALENZUELA MD Ot K02. 9 DENTAL CARIES, UNSPECIFIED 04/10/2017 OSWALDO VALENZUELA MD Ot K08. 89 OTHER SPECIFIED DISORDERS OF TEETH AND S 04/04/2018 ALVARO COELHO APRN Ot M54 .5 LOW BACK PAIN 04/04/2018 ALVARO COELHO APRN Ot M62.830 MUSCLE SPASM OF BACK 04/04/2018 ALVARO COELHO [employer] Ot Z88 .5 ALLERGY STATUS TO NARCOTIC AGENT STATUS 04/04/2018 ALVARO COELHO [employer] Ot Z88 .8 ALLERGY STATUS TO OTH DRUG/MEDS/BIOL SUB 04/06/2018 ALVARO COELHO APRN Ot M54 .5 LOW BACK PAIN 04/06/2018 ALVARO COELHO APRN Ot M62.830 MUSCLE SPASM OF BACK 04/06/2018 ALVARO COELHO [employer] Ot Z88 .5 ALLERGY STATUS TO NARCOTIC AGENT STATUS 04/06/2018 ALVARO COELHO [employer] Ot Z88 .8 ALLERGY STATUS TO OTH DRUG/MEDS/BIOL SUB 04/10/2018 ALVARO COELHO APRN Ot M54 .5 LOW BACK PAIN 04/10/2018 ALVARO COELHO APRN Ot M62.830 MUSCLE SPASM OF BACK 04/10/2018 ALVARO COELHO [employer] Ot Z88 .5 ALLERGY STATUS TO NARCOTIC AGENT STATUS 04/10/2018 ALVARO COELHO [employer] Ot Z88 .8 ALLERGY STATUS TO OTH DRUG/MEDS/BIOL SUB 09/13/2018 ZACH DO, AZIZA K Ot K59.00 CONSTIPATION, UNSPECIFIED 09/13/2018 ZACH DO AZIZA K Ot R00.2 PALPITATIONS 09/13/2018 ZACH DO AZIZA K Ot R41.0 DISORIENTATION, UNSPECIFIED 09/13/2018 ZACH SYLVIA JOYCEA K Ot Z88.2 ALLERGY STATUS TO SULFONAMIDES [...] AZIZA K Ot R00.2 PALPITATIONS 09/15/2018 ZACH DO AZIZA K Ot R41.0 DISORIENTATION, UNSPECIFIED 09/15/2018 ZACH JOYCE AZIZA K Ot Z88.2 ALLERGY STATUS TO SULFONAMIDES STATUS 09/15/2018 ZACH DOAZIZA Ot Z88.5 ALLERGY STATUS TO NARCOTIC AGENT STATUS 09/15/2018 ZACH DOAZIZA Ot Z88.8 ALLERGY STATUS TO OTH DRUG/MEDS/BIOL SUB 09/15/2018 ZACH JOYCE AZIZA K Ot Z90.49 ACQUIRED ABSENCE OF OTHER SPECIFIED PART 09/15/2018 ZACH AZIZA Alma Ot Z90.710 ACQUIRED ABSENCE OF BOTH CERVIX AND UTER 11/30/2018 JOE TAYLOR MD, Ot K04.7 PERIAPICAL ABSCESS WITHOUT SINUS 11/30/2018 JOE TAYLOR MD, Ot K08.89 OTHER SPECIFIED DISORDERS OF TEETH AND S 12/22/2018 JOE TAYLOR MD, Ot K04.7 PERIAPICAL ABSCESS WITHOUT SINUS 12/22/2018 JOE TAYLOR MD, Ot K08.89 OTHER SPECIFIED DISORDERS OF TEETH AND S 12/28/2018 ZACH AZIZA Ot L08.9 LOCAL INFECTION OF THE SKIN AND SUBCUTAN 12/28/2018 ZACH AZIZA Ot R21 RASH AND OTHER NONSPECIFIC SKIN ERUPTION 12/28/2018 ZACH AZIZA Ot S50.861 A INSECT BITE (NONVENOMOUS) OF RIGHT FOREA 12/28/2018 ZACH AZIZA Ot W57.XXX A BIT/STUNG BY NONVENOM INSECT OTH NONVE 12/28/2018 ZACH AZIZA Ot Z23 ENCOUNTER FOR IMMUNIZATION 12/28/2018 ZACH AZIZA Ot Z87.19 PERSONAL HISTORY OF OTHER DISEASES OF TH 12/28/2018 ZACH DOAZIZA Ot Z88.2 ALLERGY STATUS TO SULFONAMIDES STATUS 12/28/2018 ZACH AZIZA Ot Z88.5 ALLERGY STATUS TO NARCOTIC AGENT STATUS 12/28/2018 ZACH AZIZA Ot Z88.6 ALLERGY STATUS TO ANALGESIC AGENT STATUS 12/28/2018 ZACH AZIZA Ot Z90.49 ACQUIRED ABSENCE OF OTHER SPECIFIED PART 12/28/2018 ZACH AZIZA Ot Z90.710 ACQUIRED ABSENCE OF BOTH CERVIX AND UTER 05/13/2019 JASON FLOYD, WHITNEY Luna Ot J30. 9 ALLERGIC RHINITIS, UNSPECIFIED 05/13/2019 WHITNEY GOMEZ MD Ot R05 COUGH 05/13/2019 WHITNEY GOMEZ MD Ot Z79. 52 SKILLED NURSING (CURRENT) USE OF SYSTEMIC STER 05/13/2019 WHITNEY GOMEZ MD Ot Z88. 2 ALLERGY STATUS TO SULFONAMIDES STATUS 05/13/2019 WHITNEY GOMEZ MD Ot Z88. 5 ALLERGY STATUS TO NARCOTIC AGENT STATUS 05/13/2019 WIHTNEY GOMEZ MD, Ot Z88. 6 ALLERGY STATUS TO ANALGESIC AGENT STATUS 05/13/2019 WHITNEY GOMEZ MD Ot Z90. 49 ACQUIRED ABSENCE OF OTHER SPECIFIED PART 05/13/2019 WHITNEY GOMEZ MD Ot Z90.710 ACQUIRED ABSENCE OF BOTH CERVIX AND UTER 05/13/2019 WHITNEY GOMEZ MD Ot Z90.722 ACQUIRED ABSENCE OF OVARIES, BILATERAL Procedures Code Description [place] [address] UA W / CULTURE IF INDICATED 09/14/2013 38857 ROUT INE VENIPUNCTURE 09/14/2013 55635 CBC 09/15/2013 [id number] GF R CALC (RESULT ONLY) 09/15/2013 39973 CMP 09/15/2013 50175 TSH 09/15/2013 30752 CULT URE URINE 09/16/2013 91175 ROUT INE VENIPUNCTURE 09/18/2013 59495 LIPI D PANEL 09/18/2013 50049 ROUT INE VENIPUNCTURE 11/16/2013 46020 TSH 11/16/2013 Results Test Result Range Complete urinalysis with reflex to cultu re - 04/04/18 11:18 Urine color determination YELLOW NRG Urine clarity determination CLEAR NR G Urine pH measurement by test strip 5 5-9 Specific gravity of urine by test strip 1.010 1.016-1.022 Urine protein assay by test strip, semi-quantitative NEGATIVE NEGATIVE Urine glucose detection by automated test strip NE GATIVE NEGATIVE Erythrocytes detection in urine sediment by light micr oscopy 1+ NEGATIVE Urine ketones detection by automated test strip NE GATIVE NEGATIVE Urine nitrite detection by test strip NEGATIVE NEGATIVE Urine total bilirubin detection by test strip NEGA TIVE NEGATIVE Urine urobilinogen measurement by automated test strip (mass/volume) NORMAL NORMAL Urine leukocyte esterase detection by dipstick 1+ NEGATIVE Automated urine sediment erythrocyte cou nt by microscopy (number/high power field) [HPF] NRG Automated urine sediment leukocyte count by microscopy (number/high power field) RARE NRG Bacteria detection in urine sediment by light microsco py NEGATIVE NRG Squamous epithelial cells detection in u rine sediment by light microscopy 2-5 NRG Crystals detection in urine sediment by light microsco py NONE NRG Casts detection in urine sediment by light microscopy NONE NRG Mucus detection in urine sediment by light microscopy NEGATIVE NRG Complete urinalysis with reflex to culture NO NRG Complete urinalysis with reflex to cultu re - 09/13/18 00:04 Urine color determination YELLOW NRG Urine clarity determination CLEAR NR G Urine pH measurement by test strip 5 5-9 Specific gravity of urine by test strip 1.010 1.016-1.022 Urine protein assay by test strip, semi-quantitative NEGATIVE NEGATIVE Urine glucose detection by automated test strip NE GATIVE NEGATIVE Erythrocytes detection in urine sediment by light micr oscopy 2+ NEGATIVE Urine ketones detection by automated test strip NE GATIVE NEGATIVE Urine nitrite detection by test strip NEGATIVE NEGATIVE Urine total bilirubin detection by test strip NEGA TIVE NEGATIVE Urine urobilinogen measurement by automated test strip (mass/volume) NORMAL NORMAL Urine leukocyte esterase detection by dipstick 2+ NEGATIVE Automated urine sediment erythrocyte cou nt by microscopy (number/high power field) NONE NRG Automated urine sediment leukocyte count by microscopy (number/high power field) [HPF] NRG Bacteria detection in urine sediment by light microsco py FEW NRG Squamous epithelial cells detection in u rine sediment by light microscopy 0-2 NRG Crystals detection in urine sediment by light microsco py NONE NRG Casts detection in urine sediment by light microscopy NONE NRG Mucus detection in urine sediment by light microscopy NEGATIVE NRG Complete urinalysis with reflex to culture NO NRG Complete blood count (CBC) with automate d white blood cell (WBC) differential - 09/13/18 00:14 Blood leukocytes automated count (number/volume) 8.6 10*3/uL 4.3-11.0 Blood erythrocytes automated count (number/volume) 4.62 10*6/uL 4.35-5.85 Venous blood hemoglobin measurement (mass/volume) 13.5 g/dL 11.5-16.0 Blood hematocrit (volume fraction) 41 % 35-52 Automated erythrocyte mean corpuscular volume 88 [ foz_us] 80-99 Automated erythrocyte mean corpuscular h emoglobin (mass per erythrocyte) 29 pg 25-34 Automated erythrocyte mean corpuscular h emoglobin concentration measurement (mass/volume) 33 g/dL 32-36 Automated erythrocyte distribution width ratio 12. 6 % 10.0- 14.5 Automated blood platelet count [...] 10*3 1.0-4.0 Blood monocytes automated count (number/volume) 1. 0 10*3 0.0-1.0 Automated eosinophil count 0.1 10*3/uL 0 .0-0.3 Automated blood basophil count (count/volume) 0.0 10*3/uL 0.0-0.1 PT panel in platelet poor plasma by coag ulation assay - 09/13/18 00:14 Prothrombin time (PT) in platelet poor plasma by coagu lation assay 14.3 s 12.2-14.7 INR in platelet poor plasma or blood by coagulation as say 1.1 0.8-1.4 Activated partial thromboplastin time (a PTT) in platelet poor plasma bycoagulation assay - 09/13/18 00:14 Activated partial thromboplastin time (a PTT) in platelet poor plasma bycoagulation assay 30 s 24-35 Comprehensive metabolic panel - 09/13/18 00:14 Serum or plasma sodium measurement (moles/volume) 141 mmol/L 135-145 Serum or plasma potassium measurement (moles/volume) 3.8 mmol/L 3.6-5.0 Serum or plasma chloride measurement (moles/volume) 102 mmol/L 98-107 Carbon dioxide 28 mmol/L 21-32 Serum or plasma anion gap determination (moles/volume) 11 mmol/L 5-14 Serum or plasma urea nitrogen measurement (mass/volume ) 20 mg/dL 7-18 Serum or plasma creatinine measurement (mass/volume) 0.78 mg/dL 0.60-1.30 Serum or plasma urea nitrogen/creatinine mass ratio 26 NRG Serum or plasma creatinine measurement w ith calculation of estimated glomerular filtration rate > NRG Serum or plasma glucose measurement (mass/volume) 65 mg/dL 70-105 Serum or plasma calcium measurement (mass/volume) 9.9 mg/dL 8.5-10.1 Serum or plasma total bilirubin measurement (mass/volu me) 0.3 mg/dL 0.1-1.0 Serum or plasma alkaline phosphatase kristine surement (enzymatic activity/volume) 60 U/L 40-136 Serum or plasma aspartate aminotransfera se measurement (enzymatic activity/volume) 20 U/L 5-34 Serum or plasma alanine aminotransferase measurement (enzymatic activity/volume) 13 U/L 0-55 Serum or plasma protein measurement (mass/volume) 7.3 g/dL 6.4-8.2 Serum or plasma albumin measurement (mass/volume) 4.5 g/dL 3.2-4.5 CALCIUM CORRECTED 9.5 mg/dL 8.5-10.1 Magnesium - 09/13/18 00:14 Magnesium 2.8 mg/dL 1.8-2.4 Serum or plasma troponin i.cardiac measu rement (mass/volume) - 09/13/18 00:14 Serum or plasma troponin i.cardiac measurement (mass/v olume) < ng/mL <0.028 Serum or plasma amylase measurement (enz ymatic activity/volume) - 09/13/18 00:14 Serum or plasma amylase measurement (enzymatic activit y/volume) 74 U/L 25-125 Serum or plasma lithium measurement (mol es/volume) - 09/13/18 00:14 BNP level 15.3 pg/mL <100.0 Lipase - 09/13/18 00:14 Lipase 36 U/L 8-78 Serum or plasma thyroxine (T4) free adrián urement (mass/volume) - 09/13/18 00:14 Serum or plasma thyroxine (T4) free measurement (mass/ volume) 1.01 ng/dL 0.70-1.48 Serum or plasma thyrotropin measurement by detection limit <=0.05 miu/l (units/volume) - 09/13/18 00:14 Serum or plasma thyrotropin measurement by detection limit <=0.05 miu/l (units/volume) 9.49 u[iU]/mL 0.35-4.94 Encounters ACCT No. Visit Date/Time Discharge Status Pt. Type Provider Facility Loc./Unit Complaint [id number] 11/16/2013 14:58:00 11/16/2013 23:59: 59 CLS Outpatient JUDY MCGUIRE APRN [id number] 09/18/2013 09:51:00 09/18/2013 23:59: 59 CLS Outpatient JUDY MCGUIRE APRN S [id number] 09/14/2013 17:40:00 09/14/2013 23:59: 59 CLS Outpatient JUDY MCGUIRE APRN [id number] 05/13/2019 08:55:00 09:22:00 DIS Emergency JASON FLOYD, WHITNEY Luna [facility] ER COUGH [id number] 12/28/2018 22:55:00 23:33:00 DIS Emergency AZIZA SERRANO DO [facility] ER RASH ON R ARM [id number] 11/30/2018 07:00:00 09:15:00 DIS Emergency CLAUDIA FLOYD, JOE Ahn [facility] ER INFECTION IN [facility] [id number] 09/12/2018 21:59:00 02:56:00 DIS Emergency AZIZA SERRANO DO [facility] ER STOMACH PAIN/BLOATING/N AUSEA [id number] 04/04/2018 10:17:00 018 12:15:00 DIS Emergency ALVARO COELHO APRN [facility] ER BACK PAIN;NAUSEA [id number] 04/10/2017 10:10:00 017 10:36:00 DIS Emergency NICOLAS FLOYD, OSWALDO Cedillo [facility] ER R SIDE EAR PAIN, SWOLLE N GLANDS
--- OUTSIDE RECORDS SUMMARY | 2019-06-07 20:48 | XMS REPORT ---
Author Author Kate MCGUIRE Organization [facility] Address [address] [place] [address] Care Team Providers Care Cheese Processor Name Role Phone JUDY MCGUIRE Unavailable PROBLEMS Type Condition ICD9-CM Code TGA74-BS Code Onset Dates Condition S tatus SNOMED Code Problem Routine general medical examination at [facility] y V70.0 Active 439158667 Problem Decreased libido 799.81 Active 835 7008 Problem Abnormal weight gain 783.1 Active 655752743 Problem Unspecified hypothyroidism 244.9 Act ambrosio 16410059 Problem Family history of other cardiovascular diseases V17.49 Active 884435225 Problem Dyslipidemia E78.5 Active 2789102 07 Problem Other malaise and fatigue 780.79 Acti ve 880707009 Problem Unspecified menopausal and postmenopausal disorder 627.9 Active 006011591 Problem Benign paroxysmal positional vertigo 386.11 Active 574101524 Problem Other and unspecified hyperlipidemia 272.4 Active 94075629 ALLERGIES No Information ENCOUNTERS Encounter Location Date Diagnosis [facility] [address] [facility] [id number] [address] [place] [phone] Aug, Dyslipidemia E78.5 [facility] [address] [facility] [id number] HUMPHREY, K S [id number] Aug, Fatigue, unspecified type R53.83 [facility] [address] [id number] HU[place]HREY, K S [id number] Aug, [facility] [address] [id number] [id number] Mar, Dental examination Z01.20 and Dental car ies on smooth surface penetrating into pulp K02.63 [facility] [address] [facility] [id number] [address] [place] [phone] May, Dental caries K02.9 [facility] [address] [id number] [address] [place] [phone] 05 May, 2016 Dental examination Z01.20 [facility] [address] [id number] [address] [place] [address], [place] [phone] 14 Sep, 2014 [facility] [address] [id number] [address] [place] [phone] 13 Sep, 2014 [facility] [address] [id number] [address] [place] [phone] Apr, [facility] [address] [id number] [address] [place] [address], [place] [phone] Apr, [facility] [address] [id number] [address] [place] [phone] Nov, [facility] [address] [id number] [address] [place] [phone] Nov, [facility] [address] [id number] [address] [place] [phone] Nov, [facility] [address] [id number] [address] [place] [phone] Nov, [facility] [address] [id number] [address] [place] [phone] Nov, [facility] [address] [id number] [address] [place] [phone] Nov, [facility] [address] [id number] [address] [place] [phone] Nov, [facility] [address] [id number] [address] [place] [phone] Nov, [facility] [address] [id number] [address] [place] [phone] October, [facility] [address] [id number] [address] [place] [phone] October, [facility] [address] [id number] [address] [place] [phone] 15 Sep, 2013 [facility] [address] [id number] [address] [place] [phone] 15 Sep, 2013 [facility] [address] [id number] [address] [place] [id number] 14 Sep, 2013 [facility] [address] [id number] [address] [place] [phone] Sep, [facility] [address] [id number] [address] [place] [phone] Sep, [facility] [address] [id number] [address] [place] [phone] Sep, [facility] [address] [id number] [address] [place] [phone] Sep, [facility] [address] [id number] [address] [place] [phone] Sep, [facility] [address] [id number] [address] [place] [phone] Sep, [facility] [address] [id number] [address] [place] [phone] Sep, [facility] [address] [id number] [address] [place] [phone] Sep, [facility] [address] [id number] [address] [place] [phone] Sep, [facility] [address] [id number] [address] [place] [phone] Sep, [facility] [address] [id number] [address] [place] [phone] Sep, [facility] [address] [id number] [address] [place] [phone] Sep, IMMUNIZATIONS No Known Immunizations SOCIAL HISTORY Never Assessed REASON FOR VISIT PLAN OF CARE VITAL SIGNS MEDICATIONS Unknown [...]
== END 2019-05-13 09:22 | disposition home or self-care (01) ==
LOC: EDUNIT# 08:54 → ER 08:55
DX: J30.9 Allergic rhinitis, unspecified (principal); Z88.2 Allergy status to sulfonamides; Z88.5 Allergy status to narcotic agent; Z88.6 Allergy status to analgesic agent; Z79.52 Long term (current) use of systemic steroids; Z90.49 Acquired absence of other specified parts of digestive tract; Z90.710 Acquired absence of both cervix and uterus; Z90.722 Acquired absence of ovaries, bilateral
CPT/HCPCS: 99282

== ENCOUNTER → 2020-12-31 | Outpatient (CLI) | payer MEDICARE ==
[~2020-12-31] MED LIST changes: +BENZ100C18 PO; -CLIN300C11 PO; +CLIN300C12 PO
--- NOTE | 2020-12-31 14:10 | Diagnostic Imaging Report ---
INDICATION: 2-D and 3-D digital screening with CAD. COMPARED: 09/2007. Scattered fibroglandular elements predominantly laterally in the bilateral breast unchanged. No mass, architectural distortions, spiculated lesion or suspicious calcifications. No findings of malignancy. IMPRESSION: Stable negative mammograms BI-RADS Category 1 ACR BI-RADS Category 1: Negative. Result letter will be mailed to the patient. Note: At least 10% of breast cancer is not imaged by mammography. Dictated by: Dictated on workstation # [id number]
== END ==
LOC: RAD 07:45
PROVIDERS: ATTEND Nurse Practitioner Family
DX: Z12.31 Encounter for screening mammogram for malignant neoplasm of breast (principal)
CPT/HCPCS: 77063; 77067

== ENCOUNTER → 2021-01-21 | Outpatient (CLI) | payer MEDICARE ==
--- NOTE | 2021-01-21 10:13 | Diagnostic Imaging Report ---
INDICATION: Postmenopausal. COMPARISON: None FINDINGS: The bone mineral density of the spine and hips and the femoral necks was measured. The total T score for the spine is -1.4. The total T score for the left hip is -1.5 and for the right hip -1.1. The T score for the left femoral neck is -1.4. All of these values are in the range of osteopenia. The T score for the right femoral neck, however -0.6. This value is in the range of normal. AP Spine L1-L4: [BMD (g/cm2): 1.033] [T-Score: -1.4] [Z-Score: 0.7] [BMD Previous: NA] [BMD % Change: NA] LT Hip Neck: [BMD (g/cm2): 0.849] [T-Score: -1.4] [Z-Score: 0.5] LT Hip Total: [BMD (g/cm2):0.821] [T-Score:-1.5] [Z-Score: 0.1] [BMD Previous: NA] [BMD % Change: NA] RT Hip Neck: [BMD (g/cm2):0.98] [T-Score:-0.6] [Z-Score:1.2] RT Hip Total: [BMD (g/cm2):0.869] [T-score:-1.1] [Z-Score:0.5] [BMD Previous:NA] [BMD % Change:NA] *Indicates significant change from prior examination based on 95% confidence level. World Health Organization criteria for BMD interpretation classify patients as Normal (T-score at or above -1.0), Osteopenic (T-score between -1.0 and -2.5) or Osteoporotic (T-score at or below -2.5). LIMITATIONS AND MODIFICATION: None. FRACTURE RISK (FRAX SCORE): The ten year probability of (%): Major Osteoporotic Fracture: [7.3] Hip Fracture: [0.8] IMPRESSION: 1. There is osteopenia of the spine and hips and the left femoral neck. 2. The bone mineral density of the right femoral neck is within normal limits. 3. See below National Osteoporosis Foundation guidelines on when to potentially initiate pharmacologic therapy. Based on the National Osteoporosis Foundation Guidelines, pharmacologic treatment should be initiated in any of the following, unless clinical conditions suggest otherwise: * Any patient with prior fragility fracture of the hip or vertebrae. A spine fracture indicates 5X risk for subsequent spine fracture and 2X risk for subsequent hip fracture. * Osteoporosis (T-score <-2.5). * Postmenopausal women and men age 50 and older with low bone mass/osteopenia (T-score between -1.0 and -2.5) by DXA and 10-year major osteoporotic fracture greater than 20% or a 10-year probability of hip fracture greater than 3%. These fracture risks are supplied above in the FRAX score, if applicable. * Clinician judgement and/or patient preferences may indicate treatment for people with 10-year fracture probabilities above or below these levels. Dictated by: Dictated on workstation # [id number]
== END ==
LOC: RAD 09:00
PROVIDERS: ATTEND Nurse Practitioner Family
DX: M85.89 Other specified disorders of bone density and structure, multiple sites (principal); Z78.0 Asymptomatic menopausal state
CPT/HCPCS: 77080

== ENCOUNTER 2021-01-22 09:30 | Outpatient (RCR) | payer MEDICARE, OTHER ==
[~2021-01-22 09:30] MED LIST changes: +CLIN-144 PO; -CLIN300C12 PO; -RT-ALBUTEROL SULF 2.5 MG/3 ML PRE-MIX VIAL INH ONE
--- NOTE | 2021-02-24 12:59 | 30 Day Event Recorder ---
30-DAY EVENT RECORDER 30-DAY EVENT RECORDER DATE OF PROCEDURE: 01/22/2021-02/20/2021. INDICATION: []. PROCEDURE: A 30-day mobile cardiac outpatient telemetry was obtained for a total of 26 days and 17 hours. 42 rhythm strips were presented for review. The study quality is adequate. RESULTS: 1. Baseline sinus rhythm with an average heart rate of 69 bpm, ranging from 50- 151 bpm with occasional, isolated premature supraventricular and premature ventricular complexes each representing 1% of the total recording time. 2. There was one 11-second run of paroxysmal supraventricular tachycardia at a heart rate of 151 bpm 3. There were no pauses exceeding 2 seconds in duration. 4. There was no evidence of atrial fibrillation. 5. There were 10 patient events that correlated to sinus rhythm, sinus tachycardia and the one episode of paroxysmal supraventricular tachycardia with heart rates ranging from 71-151 bpm. Other than the episode of paroxysmal supraventricular tachycardia, there were no arrhythmias during the other 9 events. IMPRESSION: 1. This is a 30-day mobile cardiac outpatient telemetry report that was obtained for a total of 26 days and 17 hours. 2. Baseline sinus rhythm with an average heart rate of 69 bpm, ranging from 50- 151 bpm with occasional, isolated premature supraventricular and premature ventricular complexes each representing 1% of the total recording time. 2. There was one 11-second run of paroxysmal supraventricular tachycardia at a heart rate of 151 bpm. 3. There were 10 patient events that correlated to sinus rhythm, sinus tachycardia and the one episode of paroxysmal supraventricular tachycardia with heart rates ranging from 71-151 bpm. Other than the episode of paroxysmal supraventricular tachycardia, there were no arrhythmias during the other 9 events. Certain portions of this document may have been dictated utilizing voice recogn ition technology. Inherent to this technology, typographical and grammatical errors may exist. As much as I am diligent to identify and correct these mistakes, some errors may remain in the document. CESAR DUNNE JR, MD Feb 24, 2021 12:59
== END 2021-04-22 | disposition home or self-care (01) ==
LOC: CARD 09:30
PROVIDERS: ATTEND Internal Medicine Cardiovascular Disease
DX: I08.0 Rheumatic disorders of both mitral and aortic valves (principal); R55 Syncope and collapse
CPT/HCPCS: 93306

== ENCOUNTER → 2021-01-22 | Outpatient (CLI) | payer MEDICARE ==
[~2021-01-22] MED LIST changes: +RT-ALBUTEROL SULF 2.5 MG/3 ML PRE-MIX VIAL INH ONE
== END ==
LOC: RT 07:48
PROVIDERS: ATTEND Nurse Practitioner Family
DX: R06.02 Shortness of breath (principal)
CPT/HCPCS: 94060; 94621; 94726; 94729

== ENCOUNTER → 2021-04-17 | Outpatient (CLI) | payer MEDICARE ==
[2021-04-17] VITALS (12 sets, daily range): BP systolic 84–130; BP diastolic 60–112
[~2021-04-17] MED LIST changes: +NS IV 1000 ML 1,000 ML ONE
--- NOTE | 2021-04-17 10:34 | Cardiac Procedure Note ---
Cardiology Procedures Date of Procedure 04/17/2021 TILT TABLE TEST DIAGNOSIS: Syncope. PROCEDURE: After informed consent and in the resting state, upright tilt table test was performed. A peripheral IV was inserted and the patient was administered 200 mL of normal saline. The patient was placed on the tilt table in the supine position. The initial supine vital signs were a heart rate of 62 bpm and blood pressure of 105/75 mmHg. The patient was then brought to 75 degrees upright and continuous electrocardiographic monitoring was obtained. Serial vital signs were obtained immediately upon being brought to the upright position and then every 5 minutes for a total of 40 minutes. Please see the documentation in the EHR for a complete list of the vital signs. The immediate upright vital signs were a heart rate of 70 bpm and blood pressure 125/70 mmHg. The maximum heart rate during upright tilt table testing was 90 bpm and the minimum heart rate was 70 bpm. The minimum blood pressure during upright tilt table testing was 84/62 mmHg. There were no significant arrhythmias. The patient did experience lightheadedness but no syncope. The final supine vital signs were a heart rate of 65 bpm and blood pressure of 98/60 mmHg. This is a negative upright tilt table test. IMPRESSION: 1. This is a negative upright tilt table test for vasovagal syncope. Certain portions of this document may have been dictated utilizing voice recognition technology. Inherent to this technology, typographical and grammatical errors may exist. As much as I am diligent to identify and correct these mistakes, some errors may remain in the document. CESAR DUNNE JR, MD Apr 17, 2021 10:33
== END ==
LOC: CARD 08:23
PROVIDERS: ATTEND Internal Medicine Cardiovascular Disease
DX: R55 Syncope and collapse (principal)
CPT/HCPCS: 93660

== ENCOUNTER → 2021-05-23 | Outpatient (CLI) | payer MEDICARE, OTHER ==
[~2021-05-23] MED LIST changes: -NS IV 1000 ML 1,000 ML ONE
--- NOTE | 2021-05-23 14:24 | Diagnostic Imaging Report ---
PROCEDURE: CT head without contrast. TECHNIQUE: Multiple contiguous axial images were obtained through the brain without the use of intravenous contrast. Auto Exposure Controls were utilized during the CT exam to meet ALARA standards for radiation dose reduction. INDICATION: Dizziness. Syncope. Head injury. COMPARISON: 04/15/2009. FINDINGS: No CT evidence of a territorial infarction. No intracranial hemorrhage, mass effect, hydrocephalus or extra-axial fluid collections. Age indeterminate leftward angulated nasal bone fractures. Visualized paranasal sinuses and mastoids are clear. IMPRESSION: 1. No acute intracranial CT findings. 2. Age-indeterminate rightward angulated nasal bone fractures. Dictated by: Dictated on workstation # [id number]
--- NOTE | 2021-05-23 15:47 | Diagnostic Imaging Report ---
CLINICAL INDICATION: Patient with syncope and dizziness. COMPARISON: None EXAM: Real-time carotid Doppler duplex imaging is performed bilaterally. Peak systolic velocity, ICA/CCA peak systolic ratio, spectral analysis, and vascular morphology are studied. FINDINGS: ARTERY VELOCITY Right Left CCA 0.77 m/s 0.96 m/s ICA 1.00 m/s 0.91 m/s ECA 0.68 m/s 0.77 m/s ICA/CCA 1.3 1.0 VERT.ART Antegrade Antegrade There is mild bilateral carotid artery atherosclerotic disease. IMPRESSION: There is no grayscale or Doppler evidence of significant vascular stenosis. Dictated by: Dictated on workstation # [id number]
== END ==
LOC: RAD 13:45
PROVIDERS: ATTEND Nurse Practitioner
DX: S02.2XXA Fracture of nasal bones, initial encounter for closed fracture (principal); X58.XXXA Exposure to other specified factors, initial encounter
CPT/HCPCS: 70450; 93880